=== PATIENT | female | born 1995 | race Caucasian/White ===

== ENCOUNTER → 2019-12-18 14:04 | Outpatient (CLI) | payer BC, SELFPAY ==
[2019-12-18 13:39] VITALS: BMI 30.8
[2019-12-18 15:18] LABS: Absolute Lymphocyte Count 1.85 X10^3/uL (0.83-4.51); Absolute Neutrophil Count 3.8 X10^3/uL (2.0-7.7); Basophil# 0.06 X10^3/uL; Basophil% 0.9 % (0-1); Eosinophil# 0.24 X10^3/uL; Eosinophils% 3.6 % (0-5); Hematocrit 42.6 % (37-47); Lymphocyte # 1.85 X10^3/ul (4.0); Lymphocyte % 27.9 % (19-41); Mean Corp Hgb Conc 32.9 g/dL (32-36); Mean Corpuscular Hgb 29.2 pg (27.0-32.0); Mean Corpuscular Volume 88.9 fL (81-99); Mean Platelet Vol. 9.7 fl (6.2-12.0); Monocyte# 0.62 X10^3/uL; Monocyte% 9.4 % (0-10); NRBC Flagged by Analyzer 0 % (0-5); Neutrophil # 3.82 X10^3/uL (2.7-7.7); Neutrophil % 57.7 % (47-70); Platelet Count 288 K/mm3 (150-450); RBC Distribution Width CV 12.1 % (11.6-14.6); RBC Distribution Width SD 39.6 fl (35.1-43.9); Red Blood Count 4.79 M/mm3 (4.2-5.4); White Blood Count 6.6 K/mm3 (4.4-11.0)
[2019-12-18 16:14] LABS: ALB/GLOB Ratio 0.9 RATIO (0.9-2.4); AST(SGOT) 14 U/L (15-37); Alanine Aminotransfer ALT/SGPT 22 U/L (13-56); Albumin, Serum 3.7 g/dL (3.2-5.0); Alkaline Phosphatase 78 U/L (45-117); Anion Gap 4 (5-15); BUN 14 mg/dL (7-18); BUN/Creat Ratio 17.2 RATIO (10-20); Calcium,Total 8.7 mg/dL (8.5-10.1); Chloride 109 mmol/L (98-107); Creatinine, Serum 0.81 mg/dL (0.55-1.02); EST Glomerular Filtration Rate 92 mL/min (>60); Est Glom Filt Rate - Afr Amer 111 mL/min (>60); Glucose 98 mg/dL (74-106); Potassium 4.4 mmol/L (3.5-5.1); Protein, Total 7.7 g/dL (6.4-8.2); Sodium Level 141 mmol/L (136-145); T4 Free Direct 0.93 ng/dL (0.76-1.46); Thyroid Stim Hormone (TSH) 1.35 uIU/mL (0.358-3.74)
== END ==
PROVIDERS: PCP Internal Medicine; Referring Provider Internal Medicine; Visit Provider Internal Medicine
DX: Z00.00 Encounter for general adult medical examination without abnormal findings (principal); Z13.29 Encounter for screening for other suspected endocrine disorder
CPT/HCPCS: 36415; 80053; 84439; 84443; 85025

== ENCOUNTER 2020-03-10 00:31 | Emergency (ER) | payer BC, SELFPAY ==
[2020-03-07 11:29] VITALS: BMI 30.8
[2020-03-10 00:32] VITALS: BP 156/86; PULSE 127; RESP 17; TEMP 36.7; O2SAT 98; BMI 31.7
[2020-03-10 00:36] VITALS: BP 156/86; PULSE 127; RESP 17; TEMP 36.7; O2SAT 98
[2020-03-10] MEDS: 0.9% Normal Saline 1,000 ML 1000 ML IV (01:43)
[2020-03-10] MEDS: DiphenhydrAMINE 50 MG/ML Syringe 25 MG IV (01:44)
[2020-03-10] MEDS: Metoclopramide 10 MG/2 ML Vial IV (01:45)
[2020-03-10] MEDS: Ketorolac 15 MG/ML Vial IV (01:46)
[2020-03-10 01:53] VITALS: BP 133/83; PULSE 95; RESP 16; TEMP 37; O2SAT 99
[2020-03-10 02:00] VITALS: BP 124/76; PULSE 101; RESP 16; TEMP 37; O2SAT 98
[2020-03-10 02:04] LABS: Absolute Lymphocyte Count 0.89 X10^3/uL (0.83-4.51); Absolute Neutrophil Count 2.7 X10^3/uL (2.0-7.7); Basophil# 0.03 X10^3/uL; Basophil% 0.7 % (0-1); Eosinophil# 0.07 X10^3/uL; Eosinophils% 1.7 % (0-5); Hematocrit 41.4 % (37-47); Hemoglobin 13.8 g/dL (12.0-15.0); Lymphocyte # 0.89 X10^3/ul (4.0); Lymphocyte % 21.1 % (19-41); Mean Corp Hgb Conc 33.3 g/dL (32-36); Mean Corpuscular Hgb 28.9 pg (27.0-32.0); Mean Corpuscular Volume 86.6 fL (81-99); Mean Platelet Vol. 9.5 fl (6.2-12.0); Monocyte# 0.49 X10^3/uL; Monocyte% 11.6 % (0-10); NRBC Flagged by Analyzer 0 % (0-5); Neutrophil # 2.73 X10^3/uL (2.7-7.7); Neutrophil % 64.7 % (47-70); Platelet Count 168 K/mm3 (150-450); RBC Distribution Width CV 12.2 % (11.6-14.6); RBC Distribution Width SD 38.3 fl (35.1-43.9); Red Blood Count 4.78 M/mm3 (4.2-5.4); White Blood Count 4.2 K/mm3 (4.4-11.0)
[2020-03-10 02:17] LABS: Anion Gap 5 (5-15); BUN 11 mg/dL (7-18); Calcium,Total 8.5 mg/dL (8.5-10.1); Chloride 108 mmol/L (98-107); Creatinine, Serum 0.92 mg/dL (0.55-1.02); EST Glomerular Filtration Rate 80 mL/min (>60); Est Glom Filt Rate - Afr Amer 97 mL/min (>60); Estimated Creatinine Clearance 95.12 ml/min; Glucose 100 mg/dL (74-106); Potassium 3.7 mmol/L (3.5-5.1); Sodium Level 137 mmol/L (136-145)
[2020-03-10 02:36] LABS: Internal QC Validated? YES +Cl - CLEAR BKGD; Pregnancy, Serum, hCG Quali. NEGATIVE Negative
--- NOTE | 2020-03-10 02:36 | ED.VISSUMM ---
- ER Visit Summary Date of Service: 03/10/20 Chief Complaint: Headache and fever History of Present Illness: The patient is a [address] Jeffries. She reports that she has a headache that began 3 days ago. Is gradually gotten worse. Is an aching, throbbing pain in her neck and in the frontal region. Stated 10 at worst and 7-10 currently. Is worsened by walking or turning head. She relieved by the dark. She does complain of mild photophobia. She denies any nausea or vomiting. No numbness, tingling, or weakness. No recent injury to her head. Patient reports that she is had a fever to 100.5 degrees. She is also had chills and cold sweats. She denies any other infectious symptoms. No cough or difficulty breathing. No sore throat. No abdominal pain. No nausea, vomiting, or diarrhea. No dysuria or frequency. Her last menstrual period was 32 days ago. Physical Examination: Vitals: 98.1, 156/86, 127, 17, 98% on room air which is not hypoxic. General: Well-nourished and well-developed. Head: Normocephalic atraumatic. Neck: Supple. No JVD. Mild tenderness palpation over the paraspinous musculature bilaterally. She does have a solitary enlarged posterior lymph node on the right. No pharyngeal erythema or tonsillar exudate.. Cardiovascular: Tachycardic regular rhythm. No murmurs. Respiratory: No respiratory distress. Clear to auscultation bilaterally. Abdominal: Soft, nontender, nondistended, normal bowel sounds. No guarding, rebound, or peritoneal signs. Back: Nontender. Extremities: Nontender, no edema. Skin: Normal color, no rash. Neurologic: Alert and oriented ?3. Cranial nerves II through XII are intact. Normal strength and sensation. Psych: Normal affect. Test Results: CBC shows a white count of 4.2 with 12 monocytes. Chem-7 shows a chloride of 108. Kaufman test is negative. test is negative. Urinalysis shows ketones, but no evidence of infection. Emergency Department Course and Treatment: I had a prolonged discussion with the patient about the possibility of meningitis given her headache and fever. She reports that she had meningitis when she was 14 and this does not feel the same. She refused a lumbar puncture before any medications. She was given a liter of normal saline, Toradol, Reglan, and Benadryl IV. She is resting more comfortably. Treatment Plan: Patient will be discharged with symptomatic care. Push fluids. Use Tylenol and/or ibuprofen for headache. Warm compresses to her neck. Follow-up her primary care physician 1 to 2 days if not improving. Return to the emergency department for any worsening symptoms. Disposition: To home in improved and stable condition. Impression: 1 1. Cephalgia. This note was generated with [employer] dictation software. It may contain incorrect words, spelling, and punctuation that were not noted in review of the chart prior to signing ED Disposition - Plan for ED Patient: Instructions: ED CEPHALGIA Tension Headache Referrals: Marlen Jeffries MD [Primary Care Provider] - 1-2 Days if not improving
[2020-03-10 02:40] LABS: Internal QC Validated? YES +Cl - CLEAR BKGD; Monotest Negative (Negative)
[2020-03-10 03:00] VITALS: BP 125/79; PULSE 99; RESP 16; TEMP 37; O2SAT 97
[2020-03-10 03:12] LABS: Bacteria 0 SEEN /hpf (None Seen); Mucous, Urine 0 SEEN /hpf (<or=2+); Red Blood Cells-Urine 0 SEEN /hpf (0-5)
[2020-03-10 03:13] LABS: Color, Urine Yellow (Yellow); Glucose, Dipstick Normal (Normal); Ketone-Dipstick 50 mg/dl (Negative); Leukocyte Esterase-Dipstick 25 /ul (Negative); Nitrite-Dipstick Negative (Negative); Occult Blood-Urine Negative /ul (Negative); Protein-Dipstick 15 mg/dl (Negative); Specific Gravity, Urine 1.015 (1.002-1.030); Urine Bilirubin Dipstick Negative (Negative); Urine Clarity Sl. Cloudy (Clear); Urine Urobilinogen Normal (Normal); Urine pH 6.5 (5.0 - 8.0)
[2020-03-10 03:21] LABS: Amorphous Sediment 1+; Squamous Epithelial Cells - UA 0-5 SEEN /hpf (5-10); White Blood Cells 0-5 SEEN /hpf (0-5)
[2020-03-10 03:55] VITALS: BP 125/79; PULSE 99; RESP 16; O2SAT 97
== END 2020-03-10 04:04 | disposition home or self-care (01) ==
LOC: ED 01:16
PROVIDERS: Emergency Provider Emergency Medicine; PCP Internal Medicine
DX: R51.9 Headache, unspecified (principal); M54.2 Cervicalgia
CPT/HCPCS: 80048; 81001; 84703; 85025; 86308; 96361; 96374; 96375; 99283; J7030; A4216

== ENCOUNTER → 2020-09-12 | Outpatient (CLI) | payer BC, SELFPAY ==
[2020-09-12 14:22] VITALS: BMI 32.5
[2020-09-12 18:04] LABS: Amphetamine Urine VISTA NEGATIVE (<1000 ng/mL); Barbiturate Urine VISTA NEGATIVE (< 200 ng/mL); Benzodiazepine Urine VISTA NEGATIVE (< 200 ng/mL); Cocaine Urine VISTA NEGATIVE (< 300 ng/mL); Ecstacy Urine VISTA NEGATIVE (< 500 ng/mL); Methadone Urine VISTA NEGATIVE (< 300 ng/mL); PCP Urine VISTA NEGATIVE (< 25 ng/mL); THC Urine VISTA NEGATIVE (< 50 ng/mL); Vista UDS pH Range 6
[2020-09-16 06:06] LABS: Chlamydia By Nucleic Acid AMP Negative (Negative)
[2020-09-16 09:29] LABS: Gonococcus By Nucleic Acid AMP Negative (Negative)
== END | disposition home or self-care (01) ==
PROVIDERS: PCP Internal Medicine; Referring Provider Obstetrics & Gynecology; Visit Provider Obstetrics & Gynecology
DX: Z34.90 Encounter for supervision of normal pregnancy, unspecified, unspecified trimester (principal); Z11.3 Encounter for screening for infections with a predominantly sexual mode of transmission
CPT/HCPCS: 80307; 87086; 87491; 87591

== ENCOUNTER → 2020-10-10 13:27 | Outpatient (CLI) | payer BC, SELFPAY ==
[2020-10-10 11:36] VITALS: BMI 32.5
[2020-10-10 13:56] LABS: Absolute Lymphocyte Count 1.85 X10^3/uL (0.83-4.51); Absolute Neutrophil Count 5.6 X10^3/uL (2.0-7.7); Basophil# 0.06 X10^3/uL; Basophil% 0.7 % (0-1); Eosinophil# 0.11 X10^3/uL; Eosinophils% 1.3 % (0-5); Hematocrit 40.7 % (37-47); Lymphocyte # 1.85 X10^3/ul (0.83-4.51); Lymphocyte % 22.5 % (19-41); Mean Corp Hgb Conc 34.4 g/dL (32-36); Mean Corpuscular Hgb 29.5 pg (27.0-32.0); Mean Corpuscular Volume 85.7 fL (81-99); Mean Platelet Vol. 9.6 fl (6.2-12.0); Monocyte# 0.54 X10^3/uL; Monocyte% 6.6 % (0-10); NRBC Flagged by Analyzer 0 % (0-5); Neutrophil # 5.63 X10^3/uL (2.7-7.7); Neutrophil % 68.5 % (47-70); Platelet Count 250 K/mm3 (150-450); RBC Distribution Width CV 12.5 % (11.6-14.6); RBC Distribution Width SD 39.1 fl (35.1-43.9); Red Blood Count 4.75 M/mm3 (4.2-5.4); White Blood Count 8.2 K/mm3 (4.4-11.0)
[2020-10-10 14:34] LABS: Glucose Challenge Gest 1H 50g 123 mg/dL (70-140)
[2020-10-10 14:54] LABS: NATERA MAILED SPECIMEN
[2020-10-10 15:17] LABS: HIV - WCH Non-Reactive (Nonreactive); Hepatitis B Surface Antigen Non-Reactive (Nonreactive); Hepatitis C Antibody Non-Reactive (Nonreactive); Rubella IgG Reactive (Nonreactive); Syphilis Antibodies Non-reactive
== END ==
PROVIDERS: PCP Internal Medicine; Referring Provider Obstetrics & Gynecology; Visit Provider Obstetrics & Gynecology
DX: Z34.90 Encounter for supervision of normal pregnancy, unspecified, unspecified trimester (principal)
CPT/HCPCS: 36415; 82950; 85025; 86703; 86762; 86780; 86803; 86850; 86900; 86901; 87340

== ENCOUNTER 2020-12-25 05:49 | Emergency (ER) | payer BC, SELFPAY ==
[2020-12-04 14:49] VITALS: BMI 32.5
[2020-12-25 05:49] VITALS: BP 117/78; PULSE 102; RESP 18; TEMP 36.2; O2SAT 97; BMI 32.0
--- NOTE | 2020-12-25 05:54 | ED.RN ---
NO OLD EKGS IN MUSE
--- NOTE | 2020-12-25 06:03 | EKG12_ITS ---
Test Reason : CP Blood Pressure : / mmHG Vent. Rate : 104 BPM Atrial Rate : 104 BPM P-R Int : 142 ms QRS Dur : 100 ms QT Int : 364 ms P-R-T Axes : 030 043 017 degrees QTc Int : 478 ms Sinus tachycardia Incomplete right bundle branch block Borderline ECG Confirmed by GABO LOPEZ, JABARI ([id number]), supervising editor news reel WM DOBSON ([id number]) on 01/03/2021 9:21:37 AM Referred By: DRAIEL Confirmed By:JABARI AYON MD
--- NOTE | 2020-12-25 06:15 | EX.ED.DYSGE1 ---
HPI History of Present Illness Chief Complaint: Chest Pain Informant: patient Narrative Narrative: Patient is a 25-year-old previously healthy female currently at 23 weeks who presents to the emergency department for an episode of epigastric abdominal pain. She states that this woke her up out of the sleep. She took some Tums and was still having pain and she started to feel short of breath so she came into the emergency department. On arrival to the ED her symptoms have completely resolved. She believes that she just had an episode of GERD and now wishes she did not come into the emergency department. She is denying any chest pain or shortness of breath currently. No abdominal pain. She denies any vaginal bleeding or discharge. No urinary symptoms. No nausea/vomiting. Her has not had any complications at this point. This is her first . She denies any previous surgeries. She denies smoking, drinking or drug use. No leg swelling or calf pain. [facility] Medical History (Updated 12/25/20 @ 06:[address] Moses Dinh DO) Headache, migraine history of bone fractures History of viral meningitis Hives Seasonal allergies Home Medications multivitamin no.47-iron fum 27 mg-folate no.1 1 mg-dha 300 mg capsule 1 cap PO DAILY 09/04/20 [History Last Taken Unknown] Allergy/AdvReac Type Severity Reaction Status Date / Time Penicillins Allergy Mild hives Verified 12/25/20 05:55 Family History Father Thyroid cancer Myocardial infarction, Onset Age: 50 High cholesterol Grandfather Myocardial infarction, Onset Age: 50 Mother Thyroid disorder mega Social History household members: significant other housing: house current occupational status: employed Smoking Status: Never smoker alcohol intake: current alcohol intake frequency: a few times a month Alcohol type: beer, wine and hard liquor substance use type: does not use caffeine: Yes what type of physical activity do you participate in: walking, bicycling and additional details: horse riding seatbelt use: always do you feel safe at home: Yes additional social history: -Jacques ROS ROS ED Constitutional Constitutional ED: Denies chills or fever(s) Eyes Eyes: Denies change in vision ENT ENT ED: Denies epistaxis or rhinorrhea Cardiovascular Cardiovascular: Denies chest pain or palpitations Respiratory/Chest Respiratory/Chest: Denies cough, dyspnea or dyspnea on exertion Gastrointestinal Gastrointestinal: Reports abdominal pain; Denies diarrhea, nausea or vomiting Genitourinary Genitourinary ED: Denies dysuria, hematuria or urinary frequency Musculoskeletal Musculoskeletal: Denies back pain or neck pain Integumentary Denies rash Neurologic Neurologic: Denies dizziness, headache(s) or weakness EXAM Physical Exam Const Vital Signs: 12/25/20 05:49 12/25/20 05:56 Temperature 97.2 F L Temperature Source Temporal Pulse Rate 102 H Respiratory Rate 18 Respiratory Effort Normal Non-Labored Respiratory Pattern Normal Blood Pressure 117/78 Blood Pressure Mean 91 Pulse Ox 97 Oxygen Delivery Method Room Air Positive well nourished and well developed General Appearance ED: well developed and NAD HEENT Reports normocephalic and head/scalp atraumatic Eyes PERRL and EOMs intact bilaterally Neck supple Resp normal respiratory effort and clear to auscultation bilaterally Auscultation: Negative for rales, rhonchi or wheezes Cardio regular rate, regular rhythm and no murmurs GI normal to inspection, nondistended, normoactive bowel sounds and non-tender Palpation: soft; Negative for guarding or rebound tenderness present Back/Spine no CVA tenderness Extremity normal to inspection General Extremety ED: Negative for edema or tenderness General Extremity: Negative for edema Neuro no sensory deficits noted Sensorium / Orientation: alert Motor Exam: strength 5/5 throughout Psych mental status grossly normal Skin no rashes or lesions noted MDM MDM MDM Narrative Medical decision making narrative: Patient presents to the ED for an episode of epigastric abdominal pain. This has since resolved. On arrival to the ED she is borderline tachycardic but otherwise normal vital signs. Satting well on room air. EKG was performed which did not reveal any signs of acute ischemia or arrhythmia. I did discuss doing lab work with the patient but she is completely asymptomatic and does not want this done. She states that she has any repeat symptoms and she will come back for further evaluation. She was agreeable to staying in the ED to be observed for short period of time to make sure symptoms did not return. Patient monitored in the ED and she is still feeling well. She does want to be discharged at this time. She can return anytime if she develops any repeat symptoms for reassessment. She understands and is agreeable to plan. Discharged home in stable condition. She otherwise is to follow-up with her PCP. EKG Initial EKG: Attestation: I personally reviewed and interpreted this EKG as follows: (Rate of 104 bpm sinus tachycardia. Normal intervals. Normal axis. No significant ST elevations or depressions. No T wave abnormalities.) Discharge Plan Triage Chief Complaint: Chest Pain ED Provider: Moses Dinh Dx/Rx/DC Orders Clinical Impression: Abdominal pain affecting Instructions: Abdominal Pain Prescriptions: No Action PNV-DHA 27 mg iron-1 mg -300 mg capsule 1 cap PO DAILY RF: 0 Primary Care Provider: Marlen Jeffries Referrals: Marlen Jeffries MD [Primary Care Provider] - As Needed Disposition Disposition: Home, Self Care
[2020-12-25 06:33] VITALS: BP 111/68; PULSE 90; RESP 16; O2SAT 96
== END 2020-12-25 06:34 | disposition home or self-care (01) ==
PROVIDERS: Emergency Provider Emergency Medicine; PCP Internal Medicine
DX: O99.891 Other specified diseases and conditions complicating pregnancy (principal); R07.9 Chest pain, unspecified; R10.13 Epigastric pain; Z86.61 Personal history of infections of the central nervous system; Z3A.23 23 weeks gestation of pregnancy
CPT/HCPCS: 93005; 99282

== ENCOUNTER → 2021-01-27 14:46 | Outpatient (CLI) | payer BC, SELFPAY ==
[2021-01-27 15:27] LABS: Absolute Neutrophil Count 5.9 X10^3/uL (2.0-7.7); Basophil# 0.06 X10^3/uL; Basophil% 0.7 % (0-1); Eosinophils% 2.3 % (0-5); Hematocrit 39.2 % (37-47); Hemoglobin 13.3 g/dL (12.0-15.0); Lymphocyte % 19.8 % (19-41); Mean Corp Hgb Conc 33.9 g/dL (32-36); Mean Corpuscular Hgb 30.4 pg (27.0-32.0); Mean Corpuscular Volume 89.7 fL (81-99); Mean Platelet Vol. 9.3 fl (6.2-12.0); Monocyte# 0.72 X10^3/uL; Monocyte% 8.4 % (0-10); NRBC Flagged by Analyzer 0 % (0-5); Neutrophil # 5.86 X10^3/uL (2.7-7.7); Neutrophil % 68.1 % (47-70); Platelet Count 241 K/mm3 (150-450); RBC Distribution Width CV 12.3 % (11.6-14.6); RBC Distribution Width SD 40.2 fl (35.1-43.9); Red Blood Count 4.37 M/mm3 (4.2-5.4); White Blood Count 8.6 K/mm3 (4.4-11.0)
[2021-01-27 15:37] LABS: Glucose Challenge Gest 1H 50g 93 mg/dL (70-140)
== END ==
PROVIDERS: Obstetrics & Gynecology; PCP Internal Medicine; Referring Provider Nurse Practitioner Women's Health; Visit Provider Nurse Practitioner Women's Health
DX: Z34.92 Encounter for supervision of normal pregnancy, unspecified, second trimester (principal); Z3A.24 24 weeks gestation of pregnancy
CPT/HCPCS: 36415; 82950; 85025

== ENCOUNTER → 2021-03-25 | Outpatient (CLI) | payer BC, SELFPAY | END | disposition home or self-care (01) | LOC: LABSPEC 12:37 | PROVIDERS: PCP Internal Medicine; Referring Provider Nurse Practitioner Women's Health; Visit Provider Nurse Practitioner Women's Health | DX: Z34.93 Encounter for supervision of normal pregnancy, unspecified, third trimester (principal); Z3A.34 34 weeks gestation of pregnancy | CPT/HCPCS: 87081 ==

== ENCOUNTER 2021-03-27 18:00 | Outpatient (CLI) | payer BC, SELFPAY ==
[2021-03-27] VITALS (7 sets, daily range): BP systolic 123–137; BP diastolic 69–90; PULSE 80–110; TEMP 37.7; O2SAT 99; BMI 30.7
[2021-03-27] MEDS: Mag Hydrox/Al Hydrox/Simeth 30 ML UDC PO (18:54)
[2021-03-27 18:55] LABS: Hematocrit 35.2 % (37-47); Mean Corp Hgb Conc 34.1 g/dL (32-36); Mean Corpuscular Hgb 29.3 pg (27.0-32.0); Mean Corpuscular Volume 86.1 fL (81-99); Mean Platelet Vol. 9.6 fl (6.2-12.0); Platelet Count 197 K/mm3 (150-450); RBC Distribution Width CV 12.2 % (11.6-14.6); RBC Distribution Width SD 38.4 fl (35.1-43.9); Red Blood Count 4.09 M/mm3 (4.2-5.4); White Blood Count 9.1 K/mm3 (4.4-11.0)
[2021-03-27 19:13] LABS: ALB/GLOB Ratio 0.5 RATIO (0.9-2.4); AST(SGOT) 57 U/L (15-37); Alanine Aminotransfer ALT/SGPT 43 U/L (13-56); Albumin, Serum 2.3 g/dL (3.2-5.0); Alkaline Phosphatase 223 U/L (45-117); Anion Gap 9 (5-15); BUN 5 mg/dL (7-18); BUN/Creat Ratio 7.9 RATIO (10-20); Calcium,Total 8.6 mg/dL (8.5-10.1); Chloride 106 mmol/L (98-107); Creatinine, Serum 0.63 mg/dL (0.55-1.02); EST Glomerular Filtration Rate 122 mL/min (>60); Est Glom Filt Rate - Afr Amer 148 mL/min (>60); Globulin 4.3 g/dL (2.2-4.2); Glucose 102 mg/dL (74-106); Lipase 140 U/L (73-393); Protein, Total 6.6 g/dL (6.4-8.2); Sodium Level 139 mmol/L (136-145)
--- NOTE | 2021-03-27 19:56 | US_ITS ---
EXAM: US ABDOMEN LIMITED, RIGHT UPPER QUADRANT : 1995 CLINICAL INDICATION: upper abd pain TECHNIQUE: Real-time ultrasound of the right upper quadrant with image documentation. This report was created using [employer] report BIXI technology. COMPARISON: None. FINDINGS: LIVER: Unremarkable. There is normal echotexture. No focal hepatic lesion. No intrahepatic biliary ductal dilation. GALLBLADDER: A few tiny gallstones are noted. No gallbladder wall thickening is demonstrated. No pericholecystic fluid. Negative sonographic Gonzalez's sign. COMMON BILE DUCT: 4 mm The proximal common bile duct is within normal limits for the patient's age. PANCREAS: Unremarkable as visualized. No focal abnormality is demonstrated in the pancreas. No pancreatic ductal dilatation. RIGHT KIDNEY: Unremarkable. There is no hydronephrosis. No shadowing calculus. No focal lesion or perinephric collection is demonstrated. US/Abdomen Limited IMPRESSION: A few tiny gallstones are noted. No evidence of acute cholecystitis. at 2204 Reported and signed by: Guerrero Callaway MD Electronically Signed: Guerrero Callaway MD at 22:03 EDT Tel , Service support ,
--- NOTE | 2021-03-27 20:00 | OB.TRI.HP_ITS ---
HPI - General HPI Narrative SOPHIA GOLDMAN, is a 26 F who presents with increasing onset of upper abdominal pain radiating into her right back over the last few days. Patient had an episode 3 months ago of this and had minimal evaluation in the emergency room which did not occlude any blood work or imaging. Patient has some nausea but no emesis and pain is 10 out of 10 requesting pain medicine. Upon evaluation AST and total bilirubin are elevated but other labs are within normal limits. She denies any dysuria. Maternal Data Information CHERYL Calculator Estimated Delivery Date Method Current WG Current Estimate 04/21/21 LMP (Certain) 36w 3d Other Estimates 04/21/21 Ultrasound #1 36w 3d PFSH PFSH Medical History Headache, migraine history of bone fractures History of tetanus, diphtheria, and acellular pertussis booster vaccination (Tdap) History of viral meningitis Hives Seasonal allergies Home Medications multivitamin no.47-iron fum 27 mg-folate no.1 1 mg-dha 300 mg capsule 1 cap PO DAILY 09/04/20 [History Last Taken 03/26/21 23:00] Allergy/AdvReac Type Severity Reaction Status Date / Time Penicillins Allergy Mild hives Verified 03/27/21 18:26 Family History Father Thyroid cancer Myocardial infarction, Onset Age: 50 High cholesterol Grandfather Myocardial infarction, Onset Age: 50 Mother Thyroid disorder mega Social History household members: significant other housing: house current occupational status: employed Smoking Status: Never smoker alcohol intake: current alcohol intake frequency: a few times a month Alcohol t ype: beer, wine and hard liquor substance use type: does not use caffeine: Yes what type of physical activity do you participate in: walking, bicycling and additional details: horse riding seatbelt use: always do you feel safe at home: Yes additional social history: -Jacques History 1 Elective abortions Hx Para Spontaneous abortions Hx # Term Pregnancies Ectopic pregnancies Hx # Pregnancies Multiple births # of living children Visit Details Expected Delivery Route/Plan Labor Preferences- CB/BF classes: online labor support person: [place] labor intervention preferences: pain management options preferred: epidural if needed cut cord/dad catch: yes : yes PP control planned: condoms discussed possible routes of delivery and associated risks: [] special requests: [] Plans covid status: nonimmune counseled regarding risk of covid in vs vaccination and declined vaccination flu vaccine: declines tdap vaccine: given rhogam: na LARC form signed: yes Problem list reviewed and updated with the most current plan of care details and appropriate orders placed. Relevant counseling for the gestational age provided. Continue routine care and follow up unless otherwise noted in visit notes/problem list details OB Flowsheet Initial Weight: 215 lb Date -?-?-?-?-?-?-?-?-?-?-?-?- EGA Weight BP Urine Prot -?-?-?-?-?-?-?-?-?-?-?-?- Glucose FHR FuHt Pres Dilation -?-?-?-?-?-?-?-?-?-?-?-?- Effaced St Visit Note 09/12/20 -?-?-?-?-?-?-?-?-?-?-?-?- 8w 3d 214 lb (-16 oz) -?-?-?-?-?-?-?-?-?-?-?-?- 163 -?-?-?-?-?-?-?-?-?-?-?-?- GP - CRL 16mm co nsistent with LMP. 10/10/20 -?-?-?-?-?-?-?-?-?-?-?-?- 12w 3d 204 lb (-11 lb) Negative -?-?-?-?-?-?-?-?-?-?-?-?- Negative 160 -?-?-?-?-?-?-?-?-?-?-?-?- SM- no vb crampi ng 11/05/20 -?-?-?-?-?-?-?-?-?-?-?-?- 16w 1d 205 lb 6 oz (-9 lb 10 oz) 116/60 Negative -?-?-?-?-?-?-?-?-?-?-?-?- Negative 155 -?-?-?-?-?-?-?-?-?-?-?-?- MH-no VB, LOF. Anatomy US ordered. NIPT LR. Carrier and AFP declined. 12/04/20 -?-?-?-?-?-?-?-?-?-?-?-?- 20w 2d 206 lb (-9 lb) 132/70 Negative -?-?-?-?-?-?-?-?-?-?-?-?- Negative 160 -?-?-?-?-?-?-?-?-?-?-?-?- GP - no LOF, VB, DFM, ctx. Decided on name - Colby Rubio. Anatomy scan next week. 12/30/20 -?-?-?-?-?-?-?-?-?-?-?-?- 24w 0d 206 lb (-9 lb) 132/82 Negative -?-?-?-?-?-?-?-?-?-?-?-?- Negative 155 -?-?-?-?-?-?-?-?-?-?-?-?- GP - no LOF, VB, DFM, ctx. Anatomy results reviewed. GP - no LOF, VB, DFM, ctx. H ave not received anatomy results - called to obtain. 01/27/21 -?-?-?-?-?-?-?-?-?-?-?-?- 28w 0d 204 lb 4 oz (-10 lb 12 oz) 128/70 Trace -?-?-?-?-?-?-?-?-?-?-?-?- Negative 149 28 -?-?-?-?-?-?-?-?-?-?-?-?- MH-No VB, LOF. G ood FM. 28 wk labs, tdap and larc. MH-No VB, LOF. Good FM. 28 wk labs, tdap and larc. Seen in ED for upper abdominal/chest pain. Has happened 4 times. thinks spasm of diaphragm and will see PCP. 02/12/21 -?-?-?-?-?-?-?-?-?-?-?-?- 30w 2d 205 lb 4 oz (-9 lb 12 oz) 120/80 Negative -?-?-?-?-?-?-?-?-?-?-?-?- Negative 150 30 -?-?-?-?-?-?-?-?-?-?-?-?- GP - no ctx, LOF , VB, DFM. Discussed poss esophageal spasms - encouraged pepcid BID scheduled. 02/26/21 -?-?-?-?-?-?-?-?-?-?-?-?- 32w 2d 204 lb 4 oz (-10 lb 12 oz) 120/70 -?-?-?-?-?-?-?-?-?-?-?-?- 145 32 -?-?-?-?-?-?-?-?-?-?-?-?- SM- no vb lof go od fm no reuglar ctx 03/12/21 -?-?-?-?-?-?-?-?-?-?-?-?- 34w 2d 205 lb 2 oz (-9 lb 14 oz) 106/78 Negative -?-?-?-?-?-?-?-?-?-?-?-?- Negative 155 34 Cephalic -?-?-?-?-?-?-?-?-?-?-?-?- GP - no LOF, VB, DFM, ctx. Denies complaints. Discussed COVID precautions in . 03/25/21 -?-?-?-?-?-?-?-?-?-?-?-?- 36w 1d 209 lb 4 oz (-5 lb 12 oz) 118/72 Negative -?-?-?-?-?-?-?-?-?-?-?-?- Negative 151 -?-?-?-?-?-?-?-?-?-?-?-?- MH-No VB, LOF. G ood FM GBS. 03/27/21 -?-?-?-?-?-?-?-?-?-?-?-?- 36w 3d 202 lb 6.15 oz (-12 lb 9.85 oz) 128/84 132/90 -?-?-?-?-?-?-?-?-?-?-?-?- -?-?-?-?-?-?-?-?-?-?-?-?- ROS Constitutional Constitutional: Reports systems reviewed and no addt'l complaints, except as documented Gastrointestinal Gastrointestinal: Reports as per HPI Physical Exam Const alert, oriented x3 and no apparent distress HEENT Head and Scalp: normocephalic and atraumatic Neck full ROM and no lymphadenopathy Chest inspection of chest normal Resp normal respiratory effort GI Palpation: tender; Negative for rigid or rebound tenderness present Percussion: other Other Details: Gravid NST FHR Rate Baby A Baseline: 140 Variability:: Moderate Accelerations:: 15 x 15 Decelerations:: None NST Reactive:: Yes FHR Category:: Category I Uterine Activity:: no regular Assessment & Plan (1) : QUALIFIERS: Weeks of gestation: 34 weeks Qualified Code(s): Z3A.34 - 34 weeks gestation of COMMENT: declines carrier, and AFP, NIPT low risk. Anatomy US normal (2) Supervision of normal first : QUALIFIERS: Trimester: first trimester Qualified Code(s): Z34.01 - Encounter for supervision of normal first , first trimester COMMENT: PRR CHERYL: 04/21/21, boy - Colby, Spouse: Jacques (3) Abdominal pain during in third trimester: COMMENT: Elevated AST and T bili, right upper quadrant ultrasound ordered and possible CT abdomen pelvis. No leukocytosis or fever. IV fluids and IV pain medication given. STO Charges/Coding Multi Select Codes Visit Charges Office Visit/Consults: 68129 OV L3 Est Urinary/Genital Urinary/Genital CPT Codes: 49235-08 non-stress test Interp
[2021-03-27] MEDS: Lactated Ringers 1,000 ML 999 ML IV (20:30)
[2021-03-27 22:10] LABS: Mucous, Urine 0 SEEN /hpf (<or=2+); Red Blood Cells-Urine 0 SEEN /hpf (0-5); Squamous Epithelial Cells - UA 0 SEEN /hpf (5-10)
[2021-03-27 22:12] LABS: Color, Urine Yellow (Yellow); Glucose, Dipstick Normal (Normal); Leukocyte Esterase-Dipstick 500 /ul (Negative); Nitrite-Dipstick Negative (Negative); Occult Blood-Urine Negative /ul (Negative); Protein-Dipstick Negative (Negative); Specific Gravity, Urine 1.015 (1.002-1.030); Urine Bilirubin Dipstick Negative (Negative); Urine Clarity Cloudy (Clear); Urine Urobilinogen 1 mg/dl (Normal)
[2021-03-27 22:21] LABS: Ketone-Dipstick 150 mg/dl (Negative)
[2021-03-27 22:22] LABS: Amorphous Sediment 1+; Bacteria 1+ /hpf (None Seen); White Blood Cells 0-5 SEEN /hpf (0-5)
--- NOTE | 2021-03-27 22:24 | NURSING ---
Lab called with critical value of 150 ketones. Lissy MENDOZA informed.
[2021-03-27 22:37] LABS: Protein, Urine (Random) 16.5 mg/dL (<11.9); Protein:Creat Ratio 175 mg/g CRE (0-200)
--- NOTE | 2021-03-27 22:38 | US_ITS ---
History: well being cholelithiasis EXAMINATION: US Biophysical Profile W/O Nonst TECHNIQUE: Transabdominal pelvic ultrasound was performed. COMPARISON: OB ultrasound from same date FINDINGS: INTRAUTERINE GESTATION(s): Single. HEART MOTION is 152 bpm. BIOPHYSICAL PROFILE (BPP): 01/05. -- breathin/2. -- movement: 2. -- tone: 2. --HOMER: 22. PRESENTATION: cephalic. CERVIX: The cervix is not visualized. US/Biophysical Prof W/O Non Stres IMPRESSION: Single live intrauterine . No acute abnormality. Biophysical profile: 01/05 at 0112 Reported and signed by: Guerrero Callaway MD Electronically Signed: Guerrero Callaway MD at 1:12 EDT Tel , Service support ,
--- NOTE | 2021-03-27 22:47 | US_ITS ---
History: Growth ultrasound Comparison: None Technique: Multiple transabdominal sonographic images of the pelvis. Findings: Multiple sonographic images demonstrate a single live intrauterine with heart rate of 155beats per minute. Cephalicpresentation. The amount of amniotic fluid is within normal limits with an HOMER of 11.6 cm. The cervix is not well-visualized on the provided images. The placenta is anterior/posteriorwith no previa or other complication. measurements are as follows: BPD:8.8 cm, 35 weeks 5 days HC: 33.3 cm, 38 weeks 0 days AC: 33.9 cm, 37 weeks 5 days FL: 7.1 cm, 36 weeks 4 days Gestational age by US: 37 weeks 2 days, CHERYL 04/15/21 Gestational age by LMP: 36 weeks 3 days, CHERYL 04/21/21 Estimated weight is 3156 g, 74th percentile. US/OB Limited With Biometrics IMPRESSION: Single live intrauterine measuring 37 weeks 2 days, with no sonographic evidence of acute complication. at 0111 Reported and signed by: Guerrero Callaway MD Electronically Signed: Guerrero Callaway MD at 1:11 EDT Tel , Service support ,
[2021-03-27] MEDS: Betamethasone/Betamethasone 30 MG/5 ML Vial 12 MG IM (23:56)
[2021-03-27] MEDS: Ursodiol 250 MG Tablet 500 MG PO (23:57)
[2021-03-28 01:22] LABS: ALB/GLOB Ratio 0.6 RATIO (0.9-2.4); AST(SGOT) 79 U/L (15-37); Alanine Aminotransfer ALT/SGPT 54 U/L (13-56); Albumin, Serum 2.3 g/dL (3.2-5.0); Alkaline Phosphatase 237 U/L (45-117); Anion Gap 10 (5-15); BUN 4 mg/dL (7-18); BUN/Creat Ratio 7.3 RATIO (10-20); Calcium,Total 8.7 mg/dL (8.5-10.1); Chloride 107 mmol/L (98-107); Creatinine, Serum 0.55 mg/dL (0.55-1.02); EST Glomerular Filtration Rate 144 mL/min (>60); Est Glom Filt Rate - Afr Amer 174 mL/min (>60); Estimated Creatinine Clearance 157.73 ml/min; Globulin 4.1 g/dL (2.2-4.2); Glucose 99 mg/dL (74-106); Potassium 3.7 mmol/L (3.5-5.1); Protein, Total 6.4 g/dL (6.4-8.2); Sodium Level 139 mmol/L (136-145)
[2021-03-29 06:08] LABS: HEPATITIS B SURFACE AG Negative (Negative); Hepatitis A IgM Antibody Negative (Negative); Hepatitis B Core AB IgM Negative (Negative)
[2021-03-29 07:39] LABS: Hep C Antibodies <0.1 s/co ratio (0.0-0.9)
== END 2021-03-28 01:00 | disposition home or self-care (01) ==
LOC: WPOUT 18:05 → WP 18:13
PROVIDERS: PCP Internal Medicine; Visit Provider Obstetrics & Gynecology
DX: O26.893 Other specified pregnancy related conditions, third trimester (principal); R10.10 Upper abdominal pain, unspecified; Z3A.34 34 weeks gestation of pregnancy
CPT/HCPCS: 96360; 36415; 59025; 59050; 76705; 76816; 76819; 80053; 80074; 81001; 82570; 83690; 84156; 85027; 87086; 87088; 96372; 99218; J7120; G0378; J0702

== ENCOUNTER 2021-03-28 21:12 | Outpatient (CLI) | payer BC, SELFPAY ==
[2021-03-28 21:27] VITALS: BP 128/84; PULSE 111
[2021-03-28 21:49] LABS: Absolute Lymphocyte Count 2.17 X10^3/uL (0.83-4.51); Basophil# 0.05 X10^3/uL; Basophil% 0.4 % (0-1); Eosinophil# 0.05 X10^3/uL; Eosinophils% 0.4 % (0-5); Hematocrit 34.9 % (37-47); Hemoglobin 11.8 g/dL (12.0-15.0); Lymphocyte # 2.17 X10^3/ul (0.83-4.51); Lymphocyte % 19.1 % (19-41); Mean Corp Hgb Conc 33.8 g/dL (32-36); Mean Corpuscular Hgb 29.4 pg (27.0-32.0); Mean Corpuscular Volume 86.8 fL (81-99); Mean Platelet Vol. 9.9 fl (6.2-12.0); Monocyte# 0.92 X10^3/uL; Monocyte% 8.1 % (0-10); NRBC Flagged by Analyzer 0 % (0-5); Neutrophil # 7.99 X10^3/uL (2.7-7.7); Neutrophil % 70.3 % (47-70); Platelet Count 231 K/mm3 (150-450); RBC Distribution Width CV 12.1 % (11.6-14.6); RBC Distribution Width SD 38.6 fl (35.1-43.9); Red Blood Count 4.02 M/mm3 (4.2-5.4); White Blood Count 11.4 K/mm3 (4.4-11.0)
[2021-03-28] MEDS: Betamethasone/Betamethasone 30 MG/5 ML Vial 12 MG IM (22:01)
[2021-03-28 22:04] LABS: ALB/GLOB Ratio 0.6 RATIO (0.9-2.4); AST(SGOT) 43 U/L (15-37); Alanine Aminotransfer ALT/SGPT 47 U/L (13-56); Albumin, Serum 2.6 g/dL (3.2-5.0); Alkaline Phosphatase 217 U/L (45-117); Anion Gap 10 (5-15); BUN 5 mg/dL (7-18); BUN/Creat Ratio 7.8 RATIO (10-20); Bilirubin, Direct 0.19 mg/dL (0.00-0.30); Calcium,Total 8.9 mg/dL (8.5-10.1); Chloride 106 mmol/L (98-107); Creatinine, Serum 0.64 mg/dL (0.55-1.02); EST Glomerular Filtration Rate 120 mL/min (>60); Est Glom Filt Rate - Afr Amer 145 mL/min (>60); Glucose 122 mg/dL (74-106); Potassium 3.6 mmol/L (3.5-5.1); Protein, Total 6.6 g/dL (6.4-8.2); Sodium Level 137 mmol/L (136-145)
--- NOTE | 2021-04-02 05:57 | OB.TRI.PN_ITS ---
Progress Notes Date of Service: 03/28/21 Progress Note: Patient presents for triage evaluation secondary to cholestasis FHT: 130 Moderate variability reactive no decelerations category I tracing [place]: no regular Contractions Assessment and plan: cholestasis Reactive NST, reassuring maternal and status patient discharged to home to follow-up for IOL wednesday. See problem list details for additional plan information. Laboratory Studies: Laboratory Tests 03/28/21 03/28/21 Range/Units 21:30 21:30 WBC 11.4 H (4.4-11.0) K/mm3 RBC 4.02 L (4.2-5.4) M/mm3 Hgb 11.8 L (12.0-15.0) g/dL Hct 34.9 L (37-47) % MCV 86.8 (81-99) fL MCH 29.4 (27.0-32.0) pg MCHC 33.8 (32-36) g/dL RDW Std Deviation 38.6 (35.1-43.9) fl RDW Coeff of Behzad 12.1 (11.6-14.6) % Plt Count 231 (150-450) K/mm3 MPV 9.9 (6.2-12.0) fl Immature Gran % (Auto) 1.700 H (0.0-0.9) % Neut % (Auto) 70.3 H (47-70) % Lymph % (Auto) 19.1 (19-41) % Mcdonald % (Auto) 8.1 (0-10) % Eos % (Auto) 0.4 (0-5) % Baso % (Auto) 0.4 (0-1) % Absolute Neuts (auto) 8.0 H (2.0-7.7) X10^3/uL Absolute Lymphs (auto) 2.17 (0.83-4.51) X10^3/uL Nucleated RBC % 0 (0-5) % Sodium 137 (136-145) mmol/L Potassium 3.6 (3.5-5.1) mmol/L Chloride 106 (98-107) mmol/L Carbon Dioxide 21.0 (21.0-32.0) mmol/L Anion Gap 10 (5-15) BUN 5 L (7-18) mg/dL Creatinine 0.64 (0.55-1.02) mg/dL Est GFR (MDRD) Af Amer 145 (>60) mL/min Est GFR (MDRD) Non-Af 120 (>60) mL/min BUN/Creatinine Ratio 7.8 L (10-20) RATIO Glucose 122 H (74-106) mg/dL Calcium 8.9 (8.5-10.1) mg/dL Total Bilirubin 0.70 (0.20-1.00) mg/dL Direct Bilirubin 0.19 (0.00-0.30) mg/dL AST 43 H (15-37) U/L ALT 47 (13-56) U/L Alkaline Phosphatase 217 H (45-117) U/L Total Protein 6.6 (6.4-8.2) g/dL Albumin 2.6 L (3.2-5.0) g/dL Globulin 4.0 (2.2-4.2) g/dL Albumin/Globulin Ratio 0.6 L (0.9-2.4) RATIO Charges/Coding Procedures Urinary/Genital 52xxx-59xxx: [id number] non-stress test Interp
== END 2021-03-28 22:10 | disposition home or self-care (01) ==
LOC: WPOUT 21:18 → WP 21:19
PROVIDERS: PCP Internal Medicine; Visit Provider Obstetrics & Gynecology
DX: O26.619 Liver and biliary tract disorders in pregnancy, unspecified trimester (principal); K83.1 Obstruction of bile duct; Z3A.00 Weeks of gestation of pregnancy not specified
CPT/HCPCS: 36415; 59025; 80053; 82248; 85025; 96372; J0702

== ENCOUNTER 2021-03-30 18:55 | Inpatient (IN) | payer BC, SELFPAY ==
[2021-03-30 19:11] VITALS: BMI 31.4
[2021-03-30 19:26] VITALS: PULSE 96; O2SAT 99
[2021-03-30 19:27] VITALS: BP 117/73; PULSE 100
[2021-03-30] MEDS: Lactated Ringers 1,000 ML 50 ML IV (19:45)
[2021-03-30 20:09] LABS: Absolute Lymphocyte Count 2.29 X10^3/uL (0.83-4.51); Absolute Neutrophil Count 6.8 X10^3/uL (2.0-7.7); Basophil# 0.07 X10^3/uL; Basophil% 0.7 % (0-1); Eosinophil# 0.12 X10^3/uL; Eosinophils% 1.1 % (0-5); Hematocrit 33.8 % (37-47); Hemoglobin 11.6 g/dL (12.0-15.0); Lymphocyte # 2.29 X10^3/ul (0.83-4.51); Lymphocyte % 21.4 % (19-41); Mean Corp Hgb Conc 34.3 g/dL (32-36); Mean Corpuscular Hgb 29.8 pg (27.0-32.0); Mean Corpuscular Volume 86.9 fL (81-99); Mean Platelet Vol. 9.7 fl (6.2-12.0); Monocyte# 1.25 X10^3/uL; Monocyte% 11.7 % (0-10); NRBC Flagged by Analyzer 0 % (0-5); Neutrophil # 6.75 X10^3/uL (2.7-7.7); Neutrophil % 63.1 % (47-70); Platelet Count 248 K/mm3 (150-450); RBC Distribution Width CV 12.5 % (11.6-14.6); RBC Distribution Width SD 39.1 fl (35.1-43.9); Red Blood Count 3.89 M/mm3 (4.2-5.4); White Blood Count 10.7 K/mm3 (4.4-11.0)
[2021-03-30] MEDS: miSOPROStol 25 MCG TABLET VAGINAL (20:24)
[2021-03-30 20:43] VITALS: BP 107/58; PULSE 93
[2021-03-30 20:45] VITALS: PULSE 95; O2SAT 97
[2021-03-30 21:39] LABS: ALB/GLOB Ratio 0.7 RATIO (0.9-2.4); AST(SGOT) 23 U/L (15-37); Alanine Aminotransfer ALT/SGPT 33 U/L (13-56); Albumin, Serum 2.6 g/dL (3.2-5.0); Alkaline Phosphatase 180 U/L (45-117); Anion Gap 8 (5-15); BUN 6 mg/dL (7-18); BUN/Creat Ratio 9.6 RATIO (10-20); Calcium,Total 8.4 mg/dL (8.5-10.1); Chloride 108 mmol/L (98-107); Creatinine, Serum 0.62 mg/dL (0.55-1.02); EST Glomerular Filtration Rate 124 mL/min (>60); Est Glom Filt Rate - Afr Amer 150 mL/min (>60); Estimated Creatinine Clearance 139.92 ml/min; Globulin 3.9 g/dL (2.2-4.2); Glucose 99 mg/dL (74-106); Potassium 3.4 mmol/L (3.5-5.1); Protein, Total 6.5 g/dL (6.4-8.2); Sodium Level 139 mmol/L (136-145)
[2021-03-31] VITALS (39 sets, daily range): BP systolic 94–129; BP diastolic 52–80; PULSE 68–97; TEMP 36.6–37.3; O2SAT 97–100
[2021-03-31] MEDS: miSOPROStol 50 MCG TABLET VAGINAL ×2 (00:34→06:11)
[2021-03-31] MEDS: 0.9% Normal Saline Single 100 ML IV.SOLN. INTRA-UTER (06:41)
--- NOTE | 2021-03-31 07:52 | HP.PCM.OB_ITS ---
HPI - General General Date of Admission: 03/30/21 HPI Narrative SOPHIA GOLDMAN, is a 26 F who presents for IOL secondary to cholestasis with elevate dliver enzymes, severe itching, and gall bladder stones seen. T Bili also elevated. upon starting ursodiol she had normalizing blood values and improving symptoms. BMZ given march 27 and Maternal Data Information CHERYL Calculator Estimated Delivery Date Method Current WG Current Estimate 04/21/21 LMP (Certain) 37w 0d Other Estimates 04/21/21 Ultrasound #1 37w 0d PFSH PFSH Medical History Cholestasis Headache, migraine history of bone fractures History of tetanus, diphtheria, and acellular pertussis booster vaccination (Tdap) History of viral meningitis Hives Seasonal allergies Home Medications multivitamin no.47-iron fum 27 mg-folate no.1 1 mg-dha 300 mg capsule 1 cap PO DAILY 09/04/20 [History Last Taken 03/30/21] ursodiol 300 mg PO Q8H 03/30/21 [History Last Taken 03/29/21 18:30] Allergy/AdvReac Type Severity Reaction Status Date / Time Penicillins Allergy Mild hives Verified 03/30/21 20:48 Family History Father Thyroid cancer Myocardial infarction, Onset Age: 50 High cholesterol Grandfather Myocardial infarction, Onset Age: 50 Mother Thyroid disorder mega Social History household members: significant other housing: house current occupational status: employed Smoking Status: Never smoker alcohol intake: current alcohol intake frequency: a few times a month Alcohol type: beer, wine and hard liquor substance use type: does not use caffeine: Yes what type of physical activity do you participate in: walking, bicycling and additional details: horse riding seatbelt use: always do you feel safe at home: Yes additional social history: -Jacques History 1 Elective abortions Hx Para 0 Spontaneous abortions Hx # Term Pregnancies Ectopic pregnancies Hx # Pregnancies Multiple births # of living children Visit Details Expected Delivery Route/Plan Labor Preferences- CB/BF classes: online labor support person: [place] labor intervention preferences: pain management options preferred: epidural if needed cut cord/dad catch: yes : yes PP control planned: condoms discussed possible routes of delivery and associated risks: [] special requests: [] Plans covid status: nonimmune counseled regarding risk of covid in vs vaccination and declined vaccination flu vaccine: declines tdap vaccine: given rhogam: na LARC form signed: yes Problem list reviewed and updated with the most current plan of care details and appropriate orders placed. Relevant counseling for the gestational age provided. Continue routine care and follow up unless otherwise noted in visit notes/problem list details OB Flowsheet Initial Weight: 215 lb Date -?-?-?-?-?-?-?-?-?-?-?-?- EGA Weight BP Urine Prot -?-?-?-?-?-?-?-?-?-?-?-?- Glucose FHR FuHt Pres Dilation -?-?-?-?-?-?-?-?-?-?-?-?- Effaced St Visit Note 09/12/20 -?-?-?-?-?-?-?-?-?-?-?-?- 8w 3d 214 lb (-16 oz) -?-?-?-?-?-?-?-?-?-?-?-?- 163 -?-?-?-?-?-?-?-?-?-?-?-?- GP - CRL 16mm co nsistent with LMP. 10/10/20 -?-?-?-?-?-?-?-?-?-?-?-?- 12w 3d 204 lb (-11 lb) Negative -?-?-?-?-?-?-?-?-?-?-?-?- Negative 160 -?-?-?-?-?-?-?-?-?-?-?-?- SM- no vb crampi ng 11/05/20 -?-?-?-?-?-?-?-?-?-?-?-?- 16w 1d 205 lb 6 oz (-9 lb 10 oz) 116/60 Negative -?-?-?-?-?-?-?-?-?-?-?-?- Negative 155 -?-?-?-?-?-?-?-?-?-?-?-?- MH-no VB, LOF. Anatomy US ordered. NIPT LR. Carrier and AFP declined. 12/04/20 -?-?-?-?-?-?-?-?-?-?-?-?- 20w 2d 206 lb (-9 lb) 132/70 Negative -?-?-?-?-?-?-?-?-?-?-?-?- Negative 160 -?-?-?-?-?-?-?-?-?-?-?-?- GP - no LOF, VB, DFM, ctx. Decided on name - Colby Rubio. Anatomy scan next week. 12/30/20 -?-?-?-?-?-?-?-?-?-?-?-?- 24w 0d 206 lb (-9 lb) 132/82 Negative -?-?-?-?-?-?-?-?-?-?-?-?- Negative 155 -?-?-?-?-?-?-?-?--?-?-?-?- GP - no LOF, VB, DFM, ctx. Anatomy results reviewed. GP - no LOF, VB, DFM, ctx. H ave not received anatomy results - called to obtain. 01/27/21 -?-?-?-?-?-?-?-?-?-?-?--?- 28w 0d 204 lb 4 oz (-10 lb 12 oz) 128/70 Trace -?-?-?-?-?-?-?-?-?-?-?-?- Negative 149 28 -?-?-?-?-?-?-?-?-?-?-?-?- MH-No VB, LOF. G ood FM. 28 wk labs, tdap and larc. -No VB, LOF. Good FM. 28 wk labs, tdap and larc. Seen in ED for upper abdominal/chest pain. Has happened 4 times. thinks spasm of diaphragm and will see PCP. 02/12/21 -?-?-?-?-?-?-?-?-?-?-?-?- 30w 2d 205 lb 4 oz (-9 lb 12 oz) 120/80 Negative -?-?-?-?-?-?-?-?-?-?-?-?- Negative 150 30 -?-?-?-?-?-?-?-?-?-?-?-?- GP - no ctx, LOF , VB, DFM. Discussed poss esophageal spasms - encouraged pepcid BID scheduled. 02/26/21 -?-?-?-?-?-?-?-?-?-?-?-?- 32w 2d 204 lb 4 oz (-10 lb 12 oz) 120/70 -?-?-?-?-?-?-?-?-?-?-?-?- 145 32 -?-?-?-?-?-?-?-?-?-?-?-?- SM- no vb lof go od fm no reuglar ctx 03/12/21 -?-?-?-?-?-?-?-?-?-?-?-?- 34w 2d 205 lb 2 oz (-9 lb 14 oz) 106/78 Negative -?-?-?-?-?-?-?-?-?-?-?-?- Negative 155 34 Cephalic -?-?-?-?-?-?-?-?-?-?-?-?- GP - no LOF, VB, DFM, ctx. Denies complaints. Discussed COVID precautions in . 03/25/21 -?-?-?-?-?-?-?-?-?-?-?-?- 36w 1d 209 lb 4 oz (-5 lb 12 oz) 118/72 Negative -?-?-?-?-?-?-?-?-?-?-?-?- Negative 151 -?-?-?-?-?-?-?-?-?-?-?-?- MH-No VB, LOF. G ood FM GBS. 03/27/21 -?-?-?-?-?-?-?-?-?-?-?-?- 36w 4d 202 lb 6.15 oz (-12 lb 9.85 oz) 128/84 132/90 123/69 124/74 127/82 137/85 Negative mg/dl (Nega tive) -?-?-?-?-?-?-?-?-?-?-?-?- -?-?-?-?-?-?-?-?-?-?-?-?- 03/30/21 -?-?-?-?-?-?-?-?-?-?-?-?- 36w 6d 206 lb 6.4 oz (-8 lb 9.6 oz) 117/73 107/58 104/52 105/57 98/54 110/57 -?-?-?-?-?-?-?-?-?-?-?-?- -?-?-?-?-?-?-?-?-?-?-?-?- NST FHR Rate Baby A Baseline: 130 Variability:: Moderate Accelerations:: 15 x 15 Decelerations:: None NST Reactive:: Yes FHR Category:: Category I Uterine Activity:: irregular ROS Constitutional Constitutional: Reports systems reviewed and no addt'l complaints, except as documented Eyes Eyes: Denies change in vision ENT HEENT: Reports systems reviewed and no addt'l complaints, except as documented; Denies headache(s) Cardiovascular Cardiovascular: Reports systems reviewed and no addt'l complaints, except as documented; Denies chest pain or dyspnea Respiratory/Chest Respiratory/Chest: Reports systems reviewed and no addt'l complaints, except as documented Gastrointestinal Gastrointestinal: Reports systems reviewed and no addt'l complaints, except as documented; Denies abdominal pain Genitourinary Genitourinary: Reports systems reviewed and no addt'l complaints, except as documented, contractions Details: present (irregular) and movement Details: present; Denies dysuria or genital lesions Musculoskeletal Musculoskeletal: Reports systems reviewed and no addt'l complaints, except as documented Neurologic Neurologic: Reports systems reviewed and no addt'l complaints, except as documented Endocrine Endocrinology: Reports systems reviewed and no addt'l complaints, except as documented Vital Signs Vital Signs Vital Signs: 03/30/21 19:26 03/30/21 19:27 03/30/21 20:43 Temperature Temperature Source Pulse Rate 96 100 93 Blood Pressure 117/73 107/58 L BP Systolic 117 107 BP Diastolic 73 58 Pulse Ox 99 03/30/21 20:45 03/31/21 00:25 03/31/21 03:38 Temperature 98.9 F 98.1 F Temperature Source Temporal Temporal Pulse Rate 95 83 Blood Pressure 104/52 L BP Systolic 104 BP Diastolic 52 Pulse Ox 97 03/31/21 03:39 03/31/21 03:42 03/31/21 06:08 Temperature 97.8 F Temperature Source Pulse Rate 72 82 92 Blood Pressure 105/57 L 98/54 L BP Systolic 105 98 BP Diastolic 57 54 Pulse Ox 97 98 03/31/21 06:09 Temperature Temperature Source Pulse Rate 80 Blood Pressure 110/57 L BP Systolic 110 BP Diastolic 57 Pulse Ox Weight Weight: 206 lb 6.4 oz Body Mass Index (BMI) 31.4 Physical Exam Const alert, oriented x3, no apparent distress and healthy appearing HEENT normocephalic and moist oral mucous membranes Head and Scalp: atraumatic Neck full ROM, no lymphadenopathy, supple and thyroid normal General: trachea midline Lymph Lymphatic: no lymphadenopathy noted Chest inspection of chest normal Resp normal respiratory effort Cardio regular rate GI normal to inspection, nondistended, normoactive bowel sounds, soft to palpation and non-tender Inspection: gravid external exam normal Manual OB Exam: estimated gestational size appropriate, presentation cephalic, dilated, effaced and station Extremity normal to inspection General Extremity: Negative for edema Skin no rashes or lesions noted Neuro no focal motor deficits and deep tendon reflexes 2+ bilaterally Motor Exam: strength 5/5 throughout and clonus absent Psych mental status grossly normal Labs Labs Labs: Blood Type O POSITIVE Antibody Screen NEGATIVE Hct 33.8 % (37-47) L Hgb 11.6 g/dL (12.0-15.0) L Obstetrics US Syphilis Total Ab Non-reactive Rubella IgG Antibody Reactive (Nonreactive) Hep Bs Antigen Negative (Negative) Neisseria gonorrhoeae DNA (JAKE) Negative (Negative) HIV 1&2 Antibody Non-Reactive (Nonreactive) Glucose 1 Hr 50 gm 93 mg/dL (70-140) Miscellaneous Test Assessment & Plan (1) Cholestasis during : COMMENT: growth us and bpp, hep panel, bile acids sent, bmz x 2 plan IOL 37 (2) Abdominal pain during in third trimester: COMMENT: Elevated AST and T bili, right upper quadrant ultrasound ordered and possible CT abdomen pelvis. No leukocytosis or fever. IV fluids and IV pain medication given. STO (3) Supervision of normal first : QUALIFIERS: Trimester: first trimester Qualified Code(s): Z34.01 - Encounter for supervision of normal first , first trimester COMMENT: PRR CHERYL: 04/21/21, boy - Colby, Spouse: Jacques (4) : QUALIFIERS: Weeks of gestation: 34 weeks Qualified Code(s): Z3A.34 - 34 weeks gestation of COMMENT: declines carrier, and AFP, NIPT low risk. Anatomy US normal PLAN: Patient presents IOL, plan management for with cytotec then pitocin and fb. Pain management: open to epidurla preferes minimal intervention. GBS negative. Management of any complications: none I have reviewed the [facility] and made any clinically relevant updates.
--- NOTE | 2021-03-31 07:55 | PCM.PN.BLA ---
Progress Note 3 doses cytoec overnight, some sleep current tracing: FHT: 130 Moderate variability reactive no decelerations category I tracing [place]: q 2-5 Contractions reviewed tracing abnormalities since last note: no signfiicant A/P: fb placed, switch to pitocin once s/p cytotec window
[2021-03-31] MEDS: Oxytocin 30 units/NS 500 ml 30 UNITS/500 ML IV.SOLN IV (10:11)
[2021-03-31] MEDS: Lactated Ringers 1,000 ML 50 ML IV (13:35)
[2021-03-31] MEDS: Lactated Ringers 500 ML 999 ML IV ×2 (14:20→19:18)
[2021-03-31] MEDS: Ondansetron 4 MG/2 ML Vial IV (14:48)
[2021-03-31] MEDS: fentaNYL-bupivacaine (epidural) 100 ML BAG EPIDURAL ×2 (15:37→19:53)
[2021-03-31] MEDS: Lactated Ringers 1,000 ML 200 ML IV (21:37)
[2021-03-31] MEDS: Ursodiol 250 MG Tablet PO (23:31)
[2021-04-01] VITALS (29 sets, daily range): BP systolic 90–124; BP diastolic 42–77; PULSE 69–104; RESP 16–18; TEMP 35.8–37.4; O2SAT 95–100
[2021-04-01] MEDS: fentaNYL-bupivacaine (epidural) 100 ML BAG EPIDURAL (00:50)
[2021-04-01] MEDS: Lactated Ringers 500 ML 999 ML IV (00:59)
[2021-04-01] MEDS: 0.9% Saline Lock 10 ML Syringe IV (01:47)
[2021-04-01] MEDS: Amnioinfusion- 0.9% NS 1,000 ML IV.SOLN. INTRA-UTER (01:51)
[2021-04-01] MEDS: Lactated Ringers 1,000 ML 200 ML IV (03:20)
[2021-04-01] MEDS: Acetaminophen 500 MG Tablet PO (04:55)
[2021-04-01] MEDS: Oxytocin 30 units/NS 500 ml 30 UNITS/500 ML IV.SOLN 334 UNITS IV (06:13)
--- NOTE | 2021-04-01 06:48 | OP.PCM_ITS ---
Assessment & Plan (1) : QUALIFIERS: Weeks of gestation: 34 weeks Qualified Code(s): Z3A.34 - 34 weeks gestation of COMMENT: declines carrier, and AFP, NIPT low risk. Anatomy US normal; GBS neg (2) Supervision of normal first : QUALIFIERS: Trimester: first trimester Qualified Code(s): Z34.01 - Encounter for supervision of normal first , first trimester COMMENT: PRR CHERYL: 04/21/21, boy - Colby, Spouse: Jacques (3) Cholestasis during : COMMENT: growth us and bpp, hep panel, bile acids sent, bmz x 2 plan IOL 37 (4) Vaginal delivery: COMMENT: SM IOL cholestasis 37 boy colby Maternal Data Information CHERYL Calculator Estimated Delivery Date Method Current WG Current Estimate 04/21/21 LMP (Certain) 37w 1d Other Estimates 04/21/21 Ultrasound #1 37w 1d Vaginal Delivery Operative Information Date of Procedure: 04/01/21 Pre-Operative Diagnosis: iol Post-Operative Diagnosis: same Surgery / Procedure Performed: Spontaneous Vaginal Delivery Type of Anesthesia: Epidural Special Medications: none Estimated Blood Loss: 300 Fluids Replaced: crystalloid Findings Description of Procedure: Patient began pushing and delivered the head in the ERINN presentation. The head was delivered atraumatically and a loose nuchal cord ?1 was identified and the delivered through without complication. The anterior and posterior shoulders delivered without complication followed by the rest of the infant and the was placed on the maternal abdomen. Delayed cord clamping was employed for approximately 60 seconds. Cord was clamped and cut and gentle traction was applied to the cord and the placenta delivered spontaneously immediately following it was noted to be intact with three-vessel cord. The perineum and vagina were inspected and noted to have a first degree perineal laceration repaired in the usual fashionw ith 3-0 vicryl rapide. EBL was 300 cc. Patient and tolerated delivery well. Presentation: ERINN Amniotic Membrane Rupture Type: Artificial Amniotic Fluid Description: Clear Placental Delivery Description: Spontaneous Placenta Disposition: [facility] Cord Vessel Description: 3 Vessels Cord Entanglement: Around neck x 1, loose A Gender: Male Delayed Cord Clamping: Yes Post Vaginal Delivery Medications Given After Delivery: IV Pitocin Episiotomy Description: None Laceration: Perineal Extension/lac and 1st degree Complication Complications: None Procedures Urinary/Genital [id number]: [id number] Vaginal Delivery [facility] pkg
--- NOTE | 2021-04-01 07:18 | PCM.DC ---
Discharge Instructions Diet Discharge Diet: No restrictions Activity Discharge Activity: Return to Normal Activity, May Not Drive (while taking narcotic pain medications.) and May Shower May resume sexual activity in: 4-6 weeks Dressing / Incision Call your doctor if your incision/area has: Continuous Slow Oozing, Sudden Increased Bleeding, Increased Pain/ Swelling, Increased Redness and Foul Smelling Discharge Follow Up Care Please Follow Up With: Migdalia Echols MD When: Call [phone] to make an appointment with your doctor in 6 weeks. If you had elevated blood pressure or 4th degree laceration, you will need to be seen in 2 weeks. Test Results: Test results from this visit will be discussed in further detail at your follow-up appointment, if applicable. Discharge Plan Admission Admit Date/Time: 03/30/21 18:55 Primary Reason for Your Visit: vaginal delivery Attending Provider: Migdalia Echols Primary Care Provider: Marlen Jeffries Discharge Orders/Prescriptions Prescriptions: No Action PNV-DHA 27 mg iron-1 mg -300 mg capsule 1 cap PO DAILY RF: 0 ursodiol 300 mg capsule 300 mg PO Q8H RF: 0 Referrals / Follow Up: Marlen Jeffries MD [Primary Care Provider] - Disposition Disposition (needs filled in before D/C Order can be placed): Home, Self Care
[2021-04-01] MEDS: Naproxen 500 MG Tablet PO ×2 (12:44→20:54)
[2021-04-01] MEDS: Senna/Docusate Sodium 1 Tablet PO (12:52)
[2021-04-01] MEDS: Acetaminophen 500 MG Tablet 1000 MG PO (15:38)
[2021-04-02] MEDS: Acetaminophen 500 MG Tablet 1000 MG PO (01:45)
--- NOTE | 2021-04-02 02:47 | NURSING ---
This RN assuming care of patient and . Report received from Bob MENDOZA.
[2021-04-02] MEDS: oxyCODONE 5 MG Tablet PO (03:46)
[2021-04-02 03:55] VITALS: BP 112/66; PULSE 81; RESP 16; TEMP 37
[2021-04-02 07:14] LABS: Absolute Neutrophil Count 12.8 X10^3/uL (2.0-7.7); Basophil# 0.05 X10^3/uL; Basophil% 0.3 % (0-1); Eosinophils% 0.6 % (0-5); Hematocrit 33.3 % (37-47); Hemoglobin 11.3 g/dL (12.0-15.0); Lymphocyte % 9.7 % (19-41); Mean Corp Hgb Conc 33.9 g/dL (32-36); Mean Corpuscular Hgb 29.8 pg (27.0-32.0); Mean Corpuscular Volume 87.9 fL (81-99); Monocyte# 0.84 X10^3/uL; Monocyte% 5.4 % (0-10); NRBC Flagged by Analyzer 0 % (0-5); Neutrophil # 12.79 X10^3/uL (2.7-7.7); Neutrophil % 82.9 % (47-70); Platelet Count 217 K/mm3 (150-450); RBC Distribution Width CV 12.6 % (11.6-14.6); RBC Distribution Width SD 40.1 fl (35.1-43.9); Red Blood Count 3.79 M/mm3 (4.2-5.4); White Blood Count 15.5 K/mm3 (4.4-11.0)
[2021-04-02 07:32] LABS: ALB/GLOB Ratio 0.5 RATIO (0.9-2.4); AST(SGOT) 57 U/L (15-37); Alanine Aminotransfer ALT/SGPT 36 U/L (13-56); Alkaline Phosphatase 230 U/L (45-117); Anion Gap 4 (5-15); BUN 6 mg/dL (7-18); Calcium,Total 8.2 mg/dL (8.5-10.1); Chloride 109 mmol/L (98-107); EST Glomerular Filtration Rate 129 mL/min (>60); Est Glom Filt Rate - Afr Amer 156 mL/min (>60); Estimated Creatinine Clearance 144.59 ml/min; Globulin 3.8 g/dL (2.2-4.2); Glucose 107 mg/dL (74-106); Potassium 4.1 mmol/L (3.5-5.1); Protein, Total 5.8 g/dL (6.4-8.2); Sodium Level 138 mmol/L (136-145)
[2021-04-02 08:00] VITALS: BP 106/62; PULSE 82; RESP 18; TEMP 36.6; O2SAT 95
--- NOTE | 2021-04-02 08:04 | CON.PCM_ITS ---
Assessment & Plan Assessment/Plan (1) Right upper quadrant pain: PLAN: I have been consulted in conjunction with Dr. Paz. I have discussed this patient with Dr. Paz and Dr. Hitchcock. Will plan to obtain MRCP for further evaluation. Pending these results, will depend on the future plan. If acute cholecystitis, Dr. Paz will plan to perform a laparoscopic cholecystectomy with intraoperative cholangiogram. If a stone is noted within the duct, Dr. Hitchcock will plan to perform an ERCP. If no acute cholecystitis is noted, then patient will be evaluated and scheduled as an outpatient. Patient and her have had the opportunity to ask and have questions answered. Patient verbally understands and agrees with the plan. Thank you for allowing us to participate in this patient's care. HPI Consult Data Date of Consult: 04/02/21 HPI Narrative HPI Narrative: SOPHIA GOLDMAN, is a 26 F who has had a new vaginal delivery of a baby boy yesterday morning. Patient states since last night at 7 pm, she has had epigastric pain/right upper quadrant pain. She noted last night having a somewhat regular diet which included caesar salad and dressing. Patient notes her pain has been more constant since that time. She is currently having epigastric/RUQ pain. She noted having similar pain last week and was evaluated by Dr. Echols who ordered lab work and a gallbladder u/s. Ultrasound demonstrated tiny gallstones. No acute cholecystitis noted. She had liver enzymes last week. Total Bilirubin on 03/27 was 1.4, 03/28 1.9, and 04/02 1.6. She had a normal total bilirubin on 03/30. She denies any blood pressure concerns during her . She notes having some nausea and vomiting this morning. She has noted a lack of appetite since last week. Patient states she has been having similar symptoms since November. She denies previous abdominal surgeries. She notes a history at age 13, where she had meningitis. She is currently and welcomed a baby boy yesterday morning. [facility] Medical History (Updated 04/02/21 @ 08:57 by Magalis SMITH, PAEdC) Cholestasis Headache, migraine history of bone fractures History of tetanus, diphtheria, and acellular pertussis booster vaccination (Tdap) History of viral meningitis Hives Right upper quadrant pain Seasonal allergies Home Medications multivitamin no.47-iron fum 27 mg-folate no.1 1 mg-dha 300 mg capsule 1 cap PO DAILY 09/04/20 [History Last Taken 03/30/21] ursodiol 300 mg PO Q8H 03/30/21 [History Last Taken 03/29/21 18:30] Allergy/AdvReac Type Severity Reaction Status Date / Time Penicillins Allergy Mild hives Verified 03/30/21 20:48 Family History Father Thyroid cancer Myocardial infarction, Onset Age: 50 High cholesterol Grandfather Myocardial infarction, Onset Age: 50 Mother Thyroid disorder mega Social History household members: significant other housing: house current occupational status: employed Smoking Status: Never smoker alcohol intake: current alcohol intake frequency: a few times a month Alcohol type: beer, wine and hard liquor substance use type: does not use caffeine: Yes what type of physical activity do you participate in: walking, bicycling and additional details: horse riding seatbelt use: always do you feel safe at home: Yes additional social history: -Jacques ROS Constitutional Constitutional: Reports systems reviewed and no addt'l complaints, except as documented Eyes Eyes: Reports systems reviewed and no addt'l complaints, except as documented ENT HEENT: Reports systems reviewed and no addt'l complaints, except as documented Cardiovascular Cardiovascular: Reports systems reviewed and no addt'l complaints, except as documented Respiratory/Chest Respiratory/Chest: Reports systems reviewed and no addt'l complaints, except as documented Gastrointestinal Gastrointestinal: Reports systems reviewed and no addt'l complaints, except as documented Genitourinary Genitourinary: Reports systems reviewed and no addt'l complaints, except as documented Musculoskeletal Musculoskeletal: Reports systems reviewed and no addt'l complaints, except as documented Integumentary Integumentary: Reports systems reviewed and no addt'l complaints, except as documented Neurologic Neurologic: Reports systems reviewed and no addt'l complaints, except as documented Psychiatric Psychiatric: Reports systems reviewed and no addt'l complaints, except as docum ented Endocrine Endocrinology: Reports systems reviewed and no addt'l complaints, except as documented Hematologic/Lymphatic Hematologic/Lymphatic: Reports systems reviewed and no addt'l complaints, except as documented Allergic/Immunologic Allergic/Immunologic: Reports systems reviewed and no addt'l complaints, except as documented Physical Exam Const alert, oriented x3 and no apparent distress HEENT normocephalic and head/scalp atraumatic Eyes PERRL and EOMs intact bilaterally Neck full ROM Lymph Lymphatic: no lymphadenopathy noted Resp normal respiratory effort and normal air movement Cardio regular rate and regular rhythm GI soft to palpation Auscultation: normoactive bowel sounds Palpation: tender epigastric, RUQ and Gonzalez's sign and guarding RUQ no CVA tenderness Back/Spine no CVA tenderness Extremity normal to inspection Skin no rashes or lesions noted Neuro oriented x3 and CN's II-XII intact bilaterally Psych mental status grossly normal, thought process normal, cooperative and affect normal Lab / Micro Data Result Diagrams: 04/02/21 07:05 04/02/21 07:05 Labs: Laboratory Results - last 24 hr 04/02/21 07:05: WBC 15.5 H, RBC 3.79 L, Hgb 11.3 L, Hct 33.3 L, MCV 87.9, MCH 29.8, MCHC 33.9, RDW Std Deviation 40.1, RDW Coeff of Behzad 12.6, Plt Count 217, MPV 10.0, Immature Gran % (Auto) 1.100 H, Neut % (Auto) 82.9 H, Lymph % (Auto) 9.7 L, [place] % (Auto) 5.4, Eos % (Auto) 0.6, Baso % (Auto) 0.3, Absolute Neuts (auto) 12.8 H, Absolute Lymphs (auto) 1.50, Nucleated RBC % 0 04/02/21 07:05: Sodium 138, Potassium 4.1, Chloride 109 H, Carbon Dioxide 25.0, Anion Gap 4 L, BUN 6 L, Creatinine 0.60, Estim Creat Clear Calc 144.59, Est GFR (MDRD) Af Amer 156, Est GFR (MDRD) Non-Af 129, BUN/Creatinine Ratio 10.0, Glucose 107 H, Calcium 8.2 L, Total Bilirubin 1.60 H, AST 57 H, ALT 36, Alkaline Phosphatase 230 H, Total Protein 5.8 L, Albumin 2.0 L, Globulin 3.8, Albumin/Globulin Ratio 0.5 L Procedure Criteria Type of Procedure Procedure Type: Elective Elective Risks - COVID COVID Risk Discussion: The surgeon/proceduralist and patient have discussed in d etail the risk of exposure to and/or potential harm posed by the COVID-19 virus with having a surgery/procedure at this time versus the risk of delaying the surgery/procedure. It is not possible to know either the risk of delaying the surgery or procedure or chance of getting an infection with perfect accuracy, but a joint decision was made between the patient and the surgeon/proceduralist to proceed at this time with the scheduled surgery/procedure as indicated on the consent form. Charges/Coding Visit Charges Office Visits / Consults: [id number] IP Consult L3
--- NOTE | 2021-04-02 08:15 | MRI_ITS ---
STUDY: MR MRCP AND ABDOMEN WITHOUT CONTRAST REASON FOR EXAM: Female, 26 years old. RUQ pain off and on since November. TECHNIQUE: Routine abdominal MR angiographic protocol was performed. 3D reconstructions were reviewed. Standard MRCP technique was utilized. COMPARISON: 03/27/2021. FINDINGS: Gall Bladder: Distended gallbladder without fixed intraluminal filling defect. Cystic duct: Normal with no demonstrated fixed filling defect. Intrahepatic ducts: Normal visualized intrahepatic ducts with no demonstrated fixed filling defect, dilation or stricture. Common hepatic duct: Normal with no demonstrated fixed filling defect, dilation or stricture. Common bile duct: Mildly prominent caliber measuring up to 9 mm without fixed intraluminal filling defect identified. Pancreatic duct: Normal with no demonstrated fixed filling defect, dilation or stricture. Other: There is mild periportal edema. Liver measures up to 21.8 cm in craniocaudal dimension. The spleen, kidneys, and pancreas are unremarkable. MRI/MRCP Abdomen without Contrast IMPRESSION: Distended gallbladder and prominent common bile duct without a visualized intraluminal filling defect or stricture. Electronically Signed: Rg Belle MD at 13:39 EDT Tel , Service support ,
--- NOTE | 2021-04-02 16:43 | PCM.PN.OB ---
Subjective Subjective LATE ENTRY seen at 9:30 am - co n and v overnight intemrittent severe RUQ pain, will get surgery evaluation this am Objective Data Objective Data Vital Signs: Vital Signs Temp Pulse Resp BP Pulse Ox 97.8 F 82 18 106/62 95 04/02/21 08:00 04/02/21 08:00 04/02/21 08:00 04/02/21 08:00 04/02/21 08:00 Oxygen Delivery Method Room Air Weight: 206 lb 6.4 oz Body Mass Index (BMI) 31.4 Intake & Output: Intake and Output for Last 24 Hours 03/31/21 04/01/21 04/02/21 23:59 23:59 23:59 Intake Total 3453.73 / 3453.73 2528.04 / 2528.04 Output Total 3100 / 3100 1550 / 1550 200 / 200 Balance 353.73 / 353.73 978.04 / 978.04 -200 / -200 Lab / Micro Data Result Diagrams: 04/02/21 07:05 04/02/21 07:05 Labs: Laboratory Results - last 24 hr 04/02/21 07:05: WBC 15.5 H, RBC 3.79 L, Hgb 11.3 L, Hct 33.3 L, MCV 87.9, MCH 29.8, MCHC 33.9, RDW Std Deviation 40.1, RDW Coeff of Behzad 12.6, Plt Count 217, MPV 10.0, Immature Gran % (Auto) 1.100 H, Neut % (Auto) 82.9 H, Lymph % (Auto) 9.7 L, [place] % (Auto) 5.4, Eos % (Auto) 0.6, Baso % (Auto) 0.3, Absolute Neuts (auto) 12.8 H, Absolute Lymphs (auto) 1.50, Nucleated RBC % 0 04/02/21 07:05: Sodium 138, Potassium 4.1, Chloride 109 H, Carbon Dioxide 25.0, Anion Gap 4 L, BUN 6 L, Creatinine 0.60, Estim Creat Clear Calc 144.59, Est GFR (MDRD) Af Amer 156, Est GFR (MDRD) Non-Af 129, BUN/Creatinine Ratio 10.0, Glucose 107 H, Calcium 8.2 L, Total Bilirubin 1.60 H, AST 57 H, ALT 36, Alkaline Phosphatase 230 H, Total Protein 5.8 L, Albumin 2.0 L, Globulin 3.8, Albumin/Globulin Ratio 0.5 L Micro: Microbiology 03/30/21 20:15 Nasal Secretion SARS-CoV-2 Antigen (Rapid) - Final Radiography Diagnostic Testing: Radiology Impression MRCP 04/02/21 08:15 IMPRESSION: Distended gallbladder and prominent common bile duct without a visualized intraluminal filling defect or stricture. Electronically Signed: Rg Belle MD at 13:39 EDT Tel , Service support , ROS Constitutional Constitutional: Reports systems reviewed and no addt'l complaints, except as documented Cardiovascular Cardiovascular: Reports systems reviewed and no addt'l complaints, except as documented Respiratory/Chest Respiratory/Chest: Reports systems reviewed and no addt'l complaints, except as documented Gastrointestinal Gastrointestinal: Reports systems reviewed and no addt'l complaints, except as documented Physical Exam Const alert, oriented x3 and no apparent distress HEENT Head and Scalp: atraumatic Resp normal respiratory effort GI soft to palpation and non-tender Bimanual Exam - Vag & Uterus: uterus non-tender Uterus Palpation: uterus fundus firm (below Umbilicus) Assessment & Plan (1) Right upper quadrant pain: COMMENT: surgery consult and MRCP ordered (2) Abdominal pain affecting : COMMENT: Seen in ED. States more in chest, thinks spasm of diaphragm. Will see PCP. (3) Cholestasis during : COMMENT: growth us and bpp, hep panel, bile acids sent, bmz x 2 plan IOL 37 (4) Vaginal delivery: COMMENT: SM IOL cholestasis 37 boy shellie PLAN: s/p PPD # 1 1. routine post delivery care 2. breast feeding- support given 3. rh positive 4. rubella immune
[2021-04-02 17:00] VITALS: BP 102/55; PULSE 91; RESP 18; TEMP 36.6; O2SAT 97
[2021-04-02] MEDS: 0.9% Saline Lock 10 ML Syringe IV (17:09)
[2021-04-02] MEDS: Lactated Ringers 1,000 ML 30 ML IV (17:10)
[2021-04-02 20:30] VITALS: BP 103/57; PULSE 79; RESP 16; TEMP 36.4; O2SAT 97
[2021-04-03] VITALS (13 sets, daily range): BP systolic 103–136; BP diastolic 62–89; PULSE 57–83; RESP 16–18; TEMP 36.4–36.8; O2SAT 95–98; BMI 31.4
--- NOTE | 2021-04-03 | GALL_PTH ---
PATIENT: SOPHIA GOLDMAN LOC: [facility] U#:[id number] AGE/SX: 26/F ROOM: WP007 RE03/30/[address]: Dr. Migdalia Echols MD : 1995 BED: 1 DIS: 04/04/2021 SPEC #: [id number] RECD: 04/03/21 13:59 STATUS: CORBIN PHIPPSOsman #: [id number] JOSLYN: 04/03/21 00:[address]: Migdalia Echols DEPT: SURGICAL PATHOLOGY RECD BY: Boston Canela ENTERED: 04/04/21 09:08 SP TYPE: PETER COLBERT DR: Dr. Marlen Jeffries MD Tissues: Gallbladder, NOS Procedures: Surgery Specimen Level III HEADER OPERATION: Laparoscopic cholecystectomy with IOC PRE-OP DIAGNOSIS: Acute cholelithiasis TISSUE SUBMITTED: Gallbladder MICROSCOPIC DIAGNOSIS Gallbladder, cholecystectomy: Chronic cholecystitis. Benign pericystic lymph node. AM:sandy 04/07/2021 MICROSCOPIC DESCRIPTION Slides are reviewed. GROSS DESCRIPTION Received is one container labeled with the patient's name and designated gallbladder. The specimen consists of a previously, partially opened gallbladder measuring 8 cm in length and 3 cm in diameter. The external surface is pink-ho, smooth and glistening for the most part. Focally it is granular, hemorrhagic and contains cautery artifact. The gallbladder contains green-yellow mucoid bile. No stones are identified in the container or in the gallbladder. The mucosa is bile-stained and without any mass lesions. The gallbladder wall measures up to 0.4 cm in thickness. Close to the cystic duct, an ovoid nodule is noted, a possible lymph node, measuring 0.5 cm in greatest dimension. [employer] sections from the gallbladder and the cystic duct including entire possible lymph node are submitted in one cassette. / SJ:sandy 04/04/21 TC:3 CPT: 83213
[2021-04-03] MEDS: metroNIDAZOLE 500 MG/100 ML BAG 100 MG IV (08:30)
--- NOTE | 2021-04-03 09:40 | RAD_ITS ---
STUDY: INTRAOPERATIVE CHOLANGIOGRAM. REASON FOR EXAM: Female, 26 years old. Laparoscopic cholecystectomy. FLUOROSCOPY TIME (if supplied): ( 6.1 seconds ) minutes/seconds. A cine loop of 33 images was submitted. TECHNIQUE: Intraoperative Cholangiogram was performed by the surgeon. Imaging was submitted. COMPARISON: None. FINDINGS: The intrahepatic biliary ducts are unremarkable. The common bile duct is not dilated. No intraluminal filling defect is seen. There is free flow of contrast into the duodenum. RAD/Cholangiogram/ O R,Initial IMPRESSION: Unremarkable intraoperative cholangiogram. Electronically Signed: Will Mena MD at 13:35 EDT , Service support ,
[2021-04-03 09:47] LABS: Absolute Lymphocyte Count 1.97 X10^3/uL (0.83-4.51); Absolute Neutrophil Count 6.7 X10^3/uL (2.0-7.7); Basophil# 0.07 X10^3/uL; Basophil% 0.7 % (0-1); Eosinophil# 0.21 X10^3/uL; Eosinophils% 2.2 % (0-5); Hemoglobin 10.6 g/dL (12.0-15.0); Lymphocyte # 1.97 X10^3/ul (0.83-4.51); Lymphocyte % 20.3 % (19-41); Mean Corp Hgb Conc 34.2 g/dL (32-36); Mean Corpuscular Hgb 30.5 pg (27.0-32.0); Mean Corpuscular Volume 89.1 fL (81-99); Mean Platelet Vol. 9.9 fl (6.2-12.0); Monocyte# 0.67 X10^3/uL; Monocyte% 6.9 % (0-10); NRBC Flagged by Analyzer 0 % (0-5); Neutrophil # 6.67 X10^3/uL (2.7-7.7); Neutrophil % 68.9 % (47-70); Platelet Count 192 K/mm3 (150-450); RBC Distribution Width CV 12.8 % (11.6-14.6); RBC Distribution Width SD 41.5 fl (35.1-43.9); Red Blood Count 3.48 M/mm3 (4.2-5.4); White Blood Count 9.7 K/mm3 (4.4-11.0)
[2021-04-03 09:50] LABS: AST(SGOT) 44 U/L (15-37); Alanine Aminotransfer ALT/SGPT 44 U/L (13-56); Alkaline Phosphatase 202 U/L (45-117); Anion Gap 8 (5-15); BUN 4 mg/dL (7-18); BUN/Creat Ratio 7.7 RATIO (10-20); Bilirubin, Direct 0.22 mg/dL (0.00-0.30); Calcium,Total 8.4 mg/dL (8.5-10.1); Chloride 107 mmol/L (98-107); Creatinine, Serum 0.52 mg/dL (0.55-1.02); EST Glomerular Filtration Rate 153 mL/min (>60); Est Glom Filt Rate - Afr Amer 185 mL/min (>60); Estimated Creatinine Clearance 166.83 ml/min; Globulin 3.5 g/dL (2.2-4.2); Glucose 81 mg/dL (74-106); Potassium 3.6 mmol/L (3.5-5.1); Protein, Total 5.5 g/dL (6.4-8.2); Sodium Level 141 mmol/L (136-145)
[2021-04-03] MEDS: Ciprofloxacin 400 MG/200 ML BAG 200 MG IV (09:50)
[2021-04-03] MEDS: Bupivacaine Mpf 0.5% 30 ML VIAL (10:30)
--- NOTE | 2021-04-03 10:53 | OP.PCM_ITS ---
Report of Operation Date of Procedure: 04/03/21 Pre-Operative Diagnosis: acute cholecystitis Post-Operative Diagnosis: same Surgery/Procedure Performed:: Laparoscopic cholecystectomy with grams Surgeon: Rachana Paz Type of Anesthesia: General/Supplemental Anesthesiologist: Pio Leslie Special Medications: Patient on Cipro/Flagyl IV for acute cholecystitis Specimen's removed: Gallbladder Estimated Blood Loss (mL): < 10 cc Description of Procedure: Indications this is a 26 year-old female who had been having issues develop right upper quadrant pain and was found to have sludge/cholelithiasis on ultrasound however she was in her third trimester. Patient just delivered baby boy 2 days ago and had increased right upper quadrant pain. Laparoscopic cholecystectomy was elected. Description procedure: The patient was placed on operating table in supine position. General Anesthesia was induced. A timeout was completed verifying correct patient, procedure, site, position and special equipment prior to beginning procedure. The abdomen was prepped and draped in usual sterile fashion. An incision was made in the natural skin line above the umbilicus. The fascia was elevated and incised. The peritoneum was elevated and incised. Entry into the peritoneum was confirmed visually and no bowel was noted in the vicinity of the incision. Macias trocar was placed. The abdomen was insufflated with carbon dioxide to a pressure of 12-15 mmHg. Patient tolerated insufflation well. The laparoscope was then inserted and abdomen inspected. No injuries from initial trocar placement were noted. Additional trochars were then inserted in the following locations 5 mm trocar in the epigastrium and 2 more 5 mm trochars along the right costal margin. The abdomen was inspected no abnormalities were found. The table is placed in reverse Trendelenburg position with the right side up. The adhesions between the gallbladder and omentum were lysed sharply. The dome of the gallbladder was grasped with atraumatic grasper passed through the lateral port and retracted over the dome of the liver. Infundibulum was then grasped with atraumatic grasper through the midclavicular port and retracted to the right lower quadrant. This maneuver exposed Calot's triangle. The peritoneum overlying the gallbladder infundibulum was then incised and cystic duct and artery identified and circumferentially dissected. Morales catheter was used for cholangiograms. The cholangiogram showed good filling of the common bile duct into the duodenum with no filling defects, good filling of the right and left bile ducts as well. The cystic duct and artery were then doubly clipped and divided close to the gallbladder. The gallbladder then dissected from its peritoneal attachments by electrocautery. Hemostasis was checked and the gallbladder and contained stones were removed using the endoscopic retrieval bag through the umbilical port. The gallbladder is passed off table as specimen. The gallbladder fossa was copiously irrigated with saline and hemostasis obtained. There is no evidence of bleeding from the gallbladder fossa or cystic artery leakage of bile from the cystic duct stump. Secondary trochars removed under direct vision. No bleeding was noted the trocar sites. The laparoscope was withdrawn and umbilical trocar removed. The abdomen was allowed to collapse. The fascia of the 12 mm trocar was closed with a [id number] 0 Vicryl suture. The skin was closed with sutures of 4-0 Monocryl and Steri-Strips. The orogastric tube was removed and the patient was extubated. The patient tolerated procedure well and was taken to the [facility]est[facility] care [facility] in stable condition. Complications None
--- NOTE | 2021-04-03 10:57 | EX.PCM.DISCH ---
Discharge Instructions Diet Discharge Diet: No restrictions Activity Discharge Activity: May Not Drive (If taking narcotics) and May Shower (In 1 day, no baths) May resume sexual activity in: 4-6 weeks Lifting Restrictions: No lifting greater than 20 pounds x 2 weeks Dressing / Incision Call your doctor if your incision/area has: Continuous Slow Oozing, Sudden Increased Bleeding, Increased Pain/ Swelling, Increased Redness and Foul Smelling Discharge Call your doctor if you observe: Fever of 101 or Higher Remove Dressing in: 2 days Cleanse incision/area with: Soap & Water Additional Dressing/Incision Instructions:: Steri-Strips should fall off in 7 to 10 days of the do not fall if okay to remove after 10 days. Follow Up Care Please Follow Up With: Migdalia Echols MD Test Results: Test results from this visit will be discussed in further detail at your follow-up appointment, if applicable. Discharge Plan Admission Admit Date/Time: 03/30/21 18:55 Primary Reason for Your Visit: vaginal delivery Attending Provider: Migdalia Echols Primary Care Provider: Marlen Jeffries Discharge Orders/Prescriptions Prescriptions: New oxycodone-acetaminophen [Percocet] 5-325 mg tablet 1 - 2 tab PO Q6H PRN (Reason: pain) 3 Days Qty: 10 RF: 0 No Action PNV-DHA 27 mg iron-1 mg -300 mg capsule 1 cap PO DAILY RF: 0 ursodiol 300 mg capsule 300 mg PO Q8H RF: 0 Referrals / Follow Up: Marlen Jeffries MD [Primary Care Provider] - Disposition Disposition (needs filled in before D/C Order can be placed): Home, Self Care
[2021-04-03] MEDS: Lactated Ringers 1,000 ML 30 ML IV (11:16)
--- NOTE | 2021-04-03 12:37 | NURSING ---
This nursing educator reviewed the documentation completed by Merna Bains student nurse and it is complete.
--- NOTE | 2021-04-03 13:19 | NURSING ---
Pt off floor at surgery from [id number].
[2021-04-03] MEDS: Senna/Docusate Sodium 1 Tablet PO (17:54)
[2021-04-03] MEDS: Acetaminophen 500 MG Tablet 1000 MG PO (17:54)
[2021-04-03] MEDS: Naproxen 500 MG Tablet PO (20:15)
[2021-04-04] MEDS: Acetaminophen 500 MG Tablet 1000 MG PO (00:14)
[2021-04-04 03:15] VITALS: BP 129/88; PULSE 98; RESP 18; TEMP 36.8; O2SAT 97
[2021-04-04] MEDS: Naproxen 500 MG Tablet PO (04:28)
--- NOTE | 2021-04-04 08:06 | PCM.PN.OB ---
Subjective Subjective Patient doing well without complaints. Tolerating PO. Ambulating and voiding without difficulty. infant feeding well. Denies chest pain, shortness of breath, calf pain/swelling, fevers, chills, lightheadedness. Objective Data Objective Data Vital Signs: Vital Signs Temp Pulse Resp BP Pulse Ox 98.2 F 98 18 129/88 H 97 04/04/21 03:15 04/04/21 03:15 04/04/21 03:15 04/04/21 03:15 04/04/21 03:15 Oxygen Delivery Method Room Air Weight: 206 lb 6.4 oz Body Mass Index (BMI) 31.4 Intake & Output: Intake and Output for Last 24 Hours 04/02/21 04/03/21 04/04/21 23:59 23:59 23:59 Intake Total 1498.5 / 1498.5 Output Total 200 / 200 Balance -200 / -200 1498.5 / 1498.5 Lab / Micro Data Result Diagrams: 04/03/21 09:26 04/03/21 09:26 Labs: Laboratory Results - last 24 hr 04/03/21 09:26: WBC 9.7, RBC 3.48 L, Hgb 10.6 L, Hct 31.0 L, MCV 89.1, MCH 30.5, MCHC 34.2, RDW Std Deviation 41.5, RDW Coeff of Behzad 12.8, Plt Count 192, MPV 9.9, Immature Gran % (Auto) 1.000 H, Neut % (Auto) 68.9, Lymph % (Auto) 20.3, [place] % (Auto) 6.9, Eos % (Auto) 2.2, Baso % (Auto) 0.7, Absolute Neuts (auto) 6.7, Absolute Lymphs (auto) 1.97, Nucleated RBC % 0 04/03/21 09:26: Sodium 141, Potassium 3.6, Chloride 107, Carbon Dioxide 26.0, Anion Gap 8, BUN 4 L, Creatinine 0.52 L, Estim Creat Clear Calc 166.83, Est GFR (MDRD) Af Amer 185, Est GFR (MDRD) Non-Af 153, BUN/Creatinine Ratio 7.7 L, Glucose 81, Calcium 8.4 L, Total Bilirubin 0.50, Direct Bilirubin 0.22, AST 44 H, ALT 44, Alkaline Phosphatase 202 H, Total Protein 5.5 L, Albumin 2.0 L, Globulin 3.5 Micro: Microbiology 03/30/21 20:15 Nasal Secretion SARS-CoV-2 Antigen (Rapid) - Final Radiography Diagnostic Testing: Radiology Impression Cholangiogram 04/03/21 09:40 IMPRESSION: Unremarkable intraoperative cholangiogram. Electronically Signed: Will Mena MD at 13:35 EDT , Service support , ROS Constitutional Constitutional: Reports systems reviewed and no addt'l complaints, except as documented Cardiovascular Cardiovascular: Reports systems reviewed and no addt'l complaints, except as documented Respiratory/Chest Respiratory/Chest: Reports systems reviewed and no addt'l complaints, except as documented Gastrointestinal Gastrointestinal: Reports systems reviewed and no addt'l complaints, except as documented Physical Exam Const alert, oriented x3 and no apparent distress HEENT Head and Scalp: atraumatic Resp normal respiratory effort GI soft to palpation and non-tender Bimanual Exam - Vag & Uterus: uterus non-tender Uterus Palpation: uterus fundus firm (below Umbilicus) Assessment & Plan (1) Vaginal delivery: COMMENT: SM IOL cholestasis 37 boy shellie (2) Post-op pain: PLAN: s/p PPD # 3 1. routine post delivery care 2. breast feeding- support given 3. rh positive 4. rubella immune
[2021-04-04 09:44] VITALS: BP 133/88; PULSE 96; RESP 16; TEMP 36.1; O2SAT 98
--- NOTE | 2021-04-04 10:42 | PCM.DC.SUM ---
Providers Date of Admission: 03/30/21 Primary Care Physician: Dr. Marlen Jeffries MD Reason For Visit: INDUCTION VAG DEL Diagnosis Discharge Diagnosis (1) Vaginal delivery: Status: Resolved Code(s): O80 - Encounter for full-term uncomplicated delivery (2) Post-op pain: Status: Acute Code(s): G89.18 - Other acute postprocedural pain Medications at Discharge Home Medications multivitamin no.47-iron fum 27 mg-folate no.1 1 mg-dha 300 mg capsule 1 cap PO DAILY 09/04/20 ursodiol 300 mg PO Q8H 03/30/21 oxycodone-acetaminophen [Percocet] 1 - 2 tab PO Q6H PRN 3 Days #10 tab 04/03/21 Hospital Course Operations cholecystecomy Summary of Care Provided Hospital Course: admitted for IOL sec cholestasis, then had . ppd1 developed severe RUQ pain, decision for lap jana ppd 2. dc home on ppd 3 Weight / BMI Weight Weight: 206 lb 6.4 oz Body Mass Index (BMI) 31.4 ABG / Lab / Microbiology Data Result Diagrams: 04/03/21 09:26 04/03/21 09:26 Microbiology: Microbiology 03/30/21 20:15 Nasal Secretion SARS-CoV-2 Antigen (Rapid) - Final Radiography Diagnostic Testing: Radiology Impression Cholangiogram 04/03/21 09:40 IMPRESSION: Unremarkable intraoperative cholangiogram. Electronically Signed: Will Mena MD at 13:35 EDT , Service support , D/C Instructions Discharge Diet: No restrictions Discharge Activity: May Not Drive (for 2 weeks or while taking narcotic pain medications.), May Shower and May Take a Tub Bath (in 7 days) May shower in (days): 0 May resume sexual activity in: 4-6 weeks Weight Bearing Status: Full weight bearing Call your doctor if your incision/area has: Continuous Slow Oozing, Sudden Increased Bleeding, Increased Pain/ Swelling, Increased Redness and Foul Smelling Discharge Call your doctor if you observe: Fever of 101 or Higher Suture Line Care: Avoid Pulling/Pushing and Avoid Pinching/Bending Cleanse incision/area with: Soap & Water Additional Dressing/Incision Instructions: Steri-Strips should fall off in 7 to 10 days of the do not fall if okay to remove after 10 days. Please Follow Up With: Migdalia Echols MD When: Call [phone] to make an appointment with your doctor in 6 weeks. If you had elevated blood pressure or 4th degree laceration, you will need to be seen in 2 weeks. Meaningful Use Info Meaningful Use Diagnoses (Choose all that apply): None applicable Discharge Plan Admission Admit Date/Time: 03/30/21 18:55 Primary Reason for Your Visit: vaginal delivery Attending Provider: Migdalia Echols Primary Care Provider: Marlen Jeffries Instructions Patient Instructions: After a Vaginal Discharge Orders/Prescriptions Prescriptions: New oxycodone-acetaminophen [Percocet] 5-325 mg tablet 1 - 2 tab PO Q6H PRN (Reason: pain) 3 Days Qty: 10 RF: 0 No Action PNV-DHA 27 mg iron-1 mg -300 mg capsule 1 cap PO DAILY RF: 0 ursodiol 300 mg capsule 300 mg PO Q8H RF: 0 Referrals / Follow Up: Marlen Jeffries MD [Primary Care Provider] - Disposition Disposition (needs filled in before D/C Order can be placed): Home, Self Care
== END 2021-04-04 11:10 | disposition home or self-care (01) | DRG 768 ==
PROVIDERS: Surgery; Admitting Provider Obstetrics & Gynecology; PCP Internal Medicine; Referring Provider Obstetrics & Gynecology; Visit Provider Obstetrics & Gynecology
PROC: 0FT44ZZ Resection of Gallbladder, Percutaneous Endoscopic Approach (ICD-10-PCS; CPT 47610; principal; 2021-04-03 09:20)
DX: O26.62 Liver and biliary tract disorders in childbirth (principal); Z37.0 Single live birth; K83.1 Obstruction of bile duct; K81.0 Acute cholecystitis; O70.0 First degree perineal laceration during delivery; O69.81X0 Labor and delivery complicated by cord around neck, without compression, not applicable or unspecified; Z88.0 Allergy status to penicillin; Z3A.34 34 weeks gestation of pregnancy
CPT/HCPCS: 59025; 59050; 74181; 74300; 76000; 80048; 80053; 80076; 85025; 86850; 86900; 86901; 87426; 88304; 99218; J7030; J7120; A4216; G0378; J0744; J2405

== ENCOUNTER → 2021-05-15 | Outpatient (CLI) | payer BC, SELFPAY ==
[2021-05-21 16:36] LABS: HPV Reflexed? NOT INDICATED
== END | disposition home or self-care (01) ==
LOC: LABSPEC 15:38
PROVIDERS: PCP Internal Medicine; Referring Provider Obstetrics & Gynecology; Visit Provider Obstetrics & Gynecology
DX: Z12.4 Encounter for screening for malignant neoplasm of cervix (principal); R30.0 Dysuria
CPT/HCPCS: 87086; 87088; 88175; G0145

== ENCOUNTER → 2022-08-17 | Outpatient (CLI) | payer OTHER, SELFPAY ==
[2022-08-20 06:08] LABS: Chlamydia By Nucleic Acid AMP Negative (Negative)
[2022-08-20 13:06] LABS: Gonococcus By Nucleic Acid AMP Negative (Negative)
== END | disposition home or self-care (01) ==
PROVIDERS: PCP Internal Medicine; Visit Provider Obstetrics & Gynecology
DX: O09.90 Supervision of high risk pregnancy, unspecified, unspecified trimester (principal)
CPT/HCPCS: 87491; 87591

== ENCOUNTER → 2022-08-24 | Outpatient (CLI) | payer OTHER, SELFPAY ==
[2022-08-24 13:45] LABS: Glucose Challenge Gest 1H 50g 106 mg/dL (70-140)
[2022-08-24 13:48] LABS: NATERA MAILED SPECIMEN
== END | disposition home or self-care (01) ==
LOC: LAB 12:34
PROVIDERS: PCP Internal Medicine; Visit Provider Obstetrics & Gynecology
DX: Z34.81 Encounter for supervision of other normal pregnancy, first trimester (principal)
CPT/HCPCS: 36415; 82950

== ENCOUNTER → 2022-09-15 | Outpatient (CLI) | payer OTHER, SELFPAY ==
[2022-09-15 11:30] LABS: Absolute Lymphocyte Count 1.89 X10^3/uL (0.83-4.51); Absolute Neutrophil Count 5.8 X10^3/uL (2.0-7.7); Basophil# 0.06 X10^3/uL; Basophil% 0.7 % (0-1); Eosinophil# 0.15 X10^3/uL; Eosinophils% 1.8 % (0-5); Hematocrit 40.5 % (37-47); Hemoglobin 13.6 g/dL (12.0-15.0); Lymphocyte # 1.89 X10^3/ul (0.83-4.51); Lymphocyte % 22.1 % (19-41); Mean Corp Hgb Conc 33.6 g/dL (32-36); Mean Corpuscular Hgb 29.1 pg (27.0-32.0); Mean Corpuscular Volume 86.7 fL (81-99); Mean Platelet Vol. 9.6 fl (6.2-12.0); Monocyte# 0.56 X10^3/uL; Monocyte% 6.6 % (0-10); NRBC Flagged by Analyzer 0 % (0-5); Neutrophil # 5.84 X10^3/uL (2.7-7.7); Neutrophil % 68.3 % (47-70); Platelet Count 252 K/mm3 (150-450); RBC Distribution Width CV 13.2 % (11.6-14.6); RBC Distribution Width SD 41.4 fl (35.1-43.9); Red Blood Count 4.67 M/mm3 (4.2-5.4); White Blood Count 8.5 K/mm3 (4.4-11.0)
[2022-09-15 12:46] LABS: HIV - WCH Non-Reactive (Nonreactive); Hepatitis B Surface Antigen Non-Reactive (Nonreactive); Hepatitis C Antibody Non-Reactive (Nonreactive); Rubella IgG Reactive (Nonreactive); Syphilis Antibodies Non-reactive
== END | disposition home or self-care (01) ==
PROVIDERS: PCP Internal Medicine; Referring Provider Nurse Practitioner Women's Health; Visit Provider Nurse Practitioner Women's Health
DX: O09.90 Supervision of high risk pregnancy, unspecified, unspecified trimester (principal); Z3A.13 13 weeks gestation of pregnancy
CPT/HCPCS: 36415; 85025; 86703; 86762; 86780; 86803; 86850; 86900; 86901; 87086; 87088; 87340

== ENCOUNTER → 2022-11-04 | Outpatient (CLI) | payer OTHER, SELFPAY ==
--- NOTE | 2022-11-04 14:47 | US_ITS ---
STUDY: SECOND AND THIRD TRIMESTER OBSTETRICAL ULTRASOUND REASON FOR EXAM: Female, 27 years old anatomy -- 18-20 weeks LMP: June 12, 2022. TECHNIQUE: Transabdominal and Transvaginal TECHNICAL QUALITY: Adequate. PRIOR ULTRASOUND: None. FINDINGS: There is a single intrauterine fetus. The fetus is in a cephalic presentation. There is demonstrated cardiac activity with a heart rate of 150 bpm. There is a normal amniotic fluid volume. The largest amniotic fluid pocket measures 3.7 cm x 3.3 cm. The amniotic fluid index (HOMER) is within normal limits. The placenta is anterior in location and is not low lying. There are Grade 0 placental changes. The cervix measures 4.8 cm in length. The adnexal regions are not visualized. BIOMETRY: BPD: 4.91 cm: 20 weeks, 6 days HC: 18.52 cm: 20 weeks, 6 days AC: 15.58 cm: 20 weeks, 5 days FL: 3.55 cm: 21 weeks, 1 days CI: 76.6% FL/BPD: 72.2% FL/HC: FL/AC: 22.8% HC/AC: 1.19 age by current US: 20 weeks, 6 days. CHERYL by current US: March 18, 2023. Estimated weight: 389 grams, +/- 58 grams, 58 %. Age by LMP: 20 weeks, 5 days. CHERYL by LMP: March 19, 2023. ANATOMY: Gender: Female Cranium: Normal lateral ventricles. Normal choroid plexus. Normal cerebellum. Normal cisterna magna. Normal face, nose and lips. Chest: Normal 4-chamber heart. Abdomen/Pelvis: Normal diaphragm. Normal stomach. Normal abdominal wall. Normal cord insertion. Normal 3 vessel cord. Normal kidneys. Normal bladder. Spine: Normal cervical spine. Normal thoracic spine. Normal lumbar spine. Normal sacrum. Extremities: Normal bilateral upper extremities. Normal bilateral lower extremities. US/OB Anatomy Scan IMPRESSION: Single live intrauterine gestation with a mean gestational age of 20 weeks and 6 days. Electronically Signed: Will Mena MD at 15:07 EDT ,
== END | disposition home or self-care (01) ==
LOC: OPUS 14:46
PROVIDERS: PCP Internal Medicine; Referring Provider Nurse Practitioner Women's Health; Visit Provider Nurse Practitioner Women's Health
DX: Z34.90 Encounter for supervision of normal pregnancy, unspecified, unspecified trimester (principal); Z3A.00 Weeks of gestation of pregnancy not specified
CPT/HCPCS: 76805; 76817

== ENCOUNTER → 2022-12-28 | Outpatient (CLI) | payer OTHER, SELFPAY ==
[2022-12-28 09:59] LABS: Absolute Lymphocyte Count 1.65 X10^3/uL (0.83-4.51); Absolute Neutrophil Count 6.2 X10^3/uL (2.0-7.7); Basophil# 0.06 X10^3/uL; Basophil% 0.7 % (0-1); Eosinophil# 0.18 X10^3/uL; Hematocrit 35.5 % (37-47); Hemoglobin 11.6 g/dL (12.0-15.0); Lymphocyte # 1.65 X10^3/ul (0.83-4.51); Lymphocyte % 18.8 % (19-41); Mean Corp Hgb Conc 32.7 g/dL (32-36); Mean Corpuscular Hgb 28.6 pg (27.0-32.0); Mean Corpuscular Volume 87.4 fL (81-99); Mean Platelet Vol. 10.1 fl (6.2-12.0); Monocyte# 0.65 X10^3/uL; Monocyte% 7.4 % (0-10); NRBC Flagged by Analyzer 0 % (0-5); Neutrophil # 6.17 X10^3/uL (2.7-7.7); Neutrophil % 70.2 % (47-70); Platelet Count 262 K/mm3 (150-450); RBC Distribution Width CV 12.5 % (11.6-14.6); RBC Distribution Width SD 40.2 fl (35.1-43.9); Red Blood Count 4.06 M/mm3 (4.2-5.4); White Blood Count 8.8 K/mm3 (4.4-11.0)
[2022-12-28 10:40] LABS: T4 Free Direct 0.73 ng/dL (0.76-1.46); Thyroid Stim Hormone (TSH) 1.31 uIU/mL (0.358-3.74)
[2022-12-28 10:41] LABS: ALB/GLOB Ratio 0.6 RATIO (0.9-2.4); AST(SGOT) 12 U/L (15-37); Alanine Aminotransfer ALT/SGPT 14 U/L (13-56); Albumin, Serum 2.4 g/dL (3.2-5.0); Alkaline Phosphatase 107 U/L (45-117); Anion Gap 4 (5-15); BUN 5 mg/dL (7-18); BUN/Creat Ratio 7.5 RATIO (10-20); Calcium,Total 8.1 mg/dL (8.5-10.1); Chloride 108 mmol/L (98-107); Creatinine, Serum 0.67 mg/dL (0.55-1.02); EST Glomerular Filtration Rate 113 mL/min (>60); Est Glom Filt Rate - Afr Amer 137 mL/min (>60); Globulin 4.2 g/dL (2.2-4.2); Glucose 166 mg/dL (74-106); Glucose Challenge Gest 1H 50g 166 mg/dL (70-140); Potassium 3.5 mmol/L (3.5-5.1); Protein, Total 6.6 g/dL (6.4-8.2); Sodium Level 134 mmol/L (136-145)
[2022-12-28 11:02] LABS: HIV - WCH Non-Reactive (Nonreactive); Syphilis Antibodies Non-reactive
[2022-12-29 04:07] LABS: Thyroid Peroxidase AB 11 IU/mL (0-34)
== END | disposition home or self-care (01) ==
PROVIDERS: Registered Nurse; PCP Internal Medicine; Referring Provider Obstetrics & Gynecology; Visit Provider Obstetrics & Gynecology
DX: O09.90 Supervision of high risk pregnancy, unspecified, unspecified trimester (principal); Z13.1 Encounter for screening for diabetes mellitus; Z83.49 Family history of other endocrine, nutritional and metabolic diseases; Z87.59 Personal history of other complications of pregnancy, childbirth and the puerperium; Z87.19 Personal history of other diseases of the digestive system
CPT/HCPCS: 36415; 80053; 82950; 84439; 84443; 85025; 86376; 86703; 86780

== ENCOUNTER → 2023-01-01 | Outpatient (CLI) | payer OTHER, SELFPAY ==
[2023-01-01 09:47] LABS: Glucose GTT-Gestation. Fasting 99 mg/dL (<105)
[2023-01-01 10:30] LABS: Glucose GTT-Gestational 1 Hr 159 mg/dL (<190)
[2023-01-01 11:49] LABS: Glucose GTT-Gestational 2 Hr 109 mg/dL (<165)
[2023-01-01 12:59] LABS: Glucose GTT-Gestational 3 Hr 120 L (<145)
== END | disposition home or self-care (01) ==
LOC: LAB 08:44
PROVIDERS: PCP Internal Medicine; Referring Provider Nurse Practitioner Women's Health; Visit Provider Nurse Practitioner Women's Health
DX: Z13.1 Encounter for screening for diabetes mellitus (principal)
CPT/HCPCS: 36415; 82951; 82952

== ENCOUNTER → 2023-02-19 | Outpatient (CLI) | payer OTHER, SELFPAY | END | disposition home or self-care (01) | LOC: LABSPEC 11:48 | PROVIDERS: PCP Internal Medicine; Referring Provider Obstetrics & Gynecology; Visit Provider Obstetrics & Gynecology | DX: O09.90 Supervision of high risk pregnancy, unspecified, unspecified trimester (principal); Z3A.00 Weeks of gestation of pregnancy not specified | CPT/HCPCS: 87077; 87081; 87186 ==

== ENCOUNTER 2023-03-06 18:29 | Outpatient (CLI) | payer OTHER, SELFPAY ==
[2023-03-06] VITALS (7 sets, daily range): PULSE 164–188; O2SAT 97–99; BMI 35.5
--- NOTE | 2023-03-06 18:39 | EKG12_ITS ---
Test Reason : TACHYCARDIA Blood Pressure : / mmHG Vent. Rate : 175 BPM Atrial Rate : 000 BPM P-R Int : 000 ms QRS Dur : 076 ms QT Int : 256 ms P-R-T Axes : 000 023 022 degrees QTc Int : 436 ms Critical Test Result: High HR Supraventricular tachycardia Nonspecific ST abnormality Abnormal ECG Confirmed by REMINGTON LOPEZ, RENEE ([id number]), photograph editor TERENCE BURROUGHS ([id number]) on 03/09/2023 7:45:03 AM Referred By: Confirmed By:RENEE MACEDO MD
[2023-03-06 19:09] LABS: Absolute Lymphocyte Count 1.97 X10^3/uL (0.83-4.51); Absolute Neutrophil Count 6.2 X10^3/uL (2.0-7.7); Basophil# 0.06 X10^3/uL; Basophil% 0.6 % (0-1); Eosinophil# 0.13 X10^3/uL; Eosinophils% 1.4 % (0-5); Hematocrit 34.7 % (37-47); Lymphocyte # 1.97 X10^3/ul (0.83-4.51); Lymphocyte % 21.2 % (19-41); Mean Corp Hgb Conc 31.7 g/dL (32-36); Mean Corpuscular Hgb 25.3 pg (27.0-32.0); Monocyte# 0.84 X10^3/uL; NRBC Flagged by Analyzer 0 % (0-5); Neutrophil # 6.16 X10^3/uL (2.7-7.7); Neutrophil % 66.4 % (47-70); Platelet Count 281 K/mm3 (150-450); RBC Distribution Width CV 13.2 % (11.6-14.6); RBC Distribution Width SD 37.8 fl (35.1-43.9); Red Blood Count 4.34 M/mm3 (4.2-5.4); White Blood Count 9.3 K/mm3 (4.4-11.0)
[2023-03-06 19:13] LABS: Color, Urine Yellow (Yellow); Glucose, Dipstick Normal (Normal); Ketone-Dipstick Negative (Negative); Leukocyte Esterase-Dipstick 100 /ul (Negative); Nitrite-Dipstick Negative (Negative); Occult Blood-Urine Negative /ul (Negative); Protein-Dipstick 15 mg/dl (Negative); Urine Bilirubin Dipstick Negative (Negative); Urine Clarity Clear (Clear); Urine Urobilinogen Normal (Normal); Urine pH 6.5 (5.0 - 8.0)
[2023-03-06 19:31] LABS: ALB/GLOB Ratio 0.6 RATIO (0.9-2.4); AST(SGOT) 17 U/L (15-37); Alanine Aminotransfer ALT/SGPT 16 U/L (13-56); Albumin, Serum 2.5 g/dL (3.2-5.0); Alkaline Phosphatase 173 U/L (45-117); Anion Gap 10 (5-15); BUN 5 mg/dL (7-18); BUN/Creat Ratio 8.5 RATIO (10-20); Calcium,Total 8.7 mg/dL (8.5-10.1); Chloride 110 mmol/L (98-107); Creatinine, Serum 0.59 mg/dL (0.55-1.02); EST Glomerular Filtration Rate 130 mL/min (>60); Est Glom Filt Rate - Afr Amer 157 mL/min (>60); Estimated Creatinine Clearance 144.48 ml/min; Globulin 4.5 g/dL (2.2-4.2); Glucose 109 mg/dL (74-106); Potassium 3.6 mmol/L (3.5-5.1); Sodium Level 140 mmol/L (136-145); Troponin-I HS 6 pg/mL (3.0-54.0)
--- NOTE | 2023-03-06 19:31 | OB.TRI.HP_ITS ---
HPI - General HPI Narrative SOPHIA GOLDMAN, is a 28 F who presents with acute tachycardia started this afternoon feeling chest tightness and elevated heart rate, some shortness of breath. upon arrival heart rate was in the 170s to 180s and pulse ox 99% ekg shows SVT. she denies any vaginal bleeding or abnormal discharge, denies any c affeine intake, drugs, medications or stressful events. she has no cardiac history of history of blood clots. Maternal Data Information CHERYL Calculator Estimated Delivery Date Method Current WG Current Estimate 03/19/23 LMP (Certain) 38w 1d Other Estimates 03/20/23 Ultrasound #1 38w 0d PFSH PFSH Medical History Cholestasis Dysuria Headache, migraine history of bone fractures History of tetanus, diphtheria, and acellular pertussis booster vaccination (Tdap) History of viral meningitis Hives Post-op pain Right upper quadrant pain Seasonal allergies Allergy/AdvReac Type Severity Reaction Status Date / Time Penicillins Allergy Mild hives Verified 03/06/23 18:39 Family History Father Thyroid cancer High cholesterol Grandfather Myocardial infarction, Onset Age: 50 Mother Thyroid disorder mega Surgical History History of cholecystectomy Social History adopted: No household members: significant other and children housing: house number of children: 1 current occupational status: employed pets and animals: Yes (litter box-) pets and animals: cat(s) and dog(s) history of recent travel: Yes ([facility]) out of state: Yes sexually active: No Smoking Status: Never smoker alcohol intake: current alcohol intake frequency: a few times a month Alcohol type: beer, wine and hard liquor substance use type: does not use well-balanced diet: daily or most days caffeine: Yes Type: coffee Number of servings: 2 what type of physical activity do you participate in: walking, bicycling and additional details: horse riding seatbelt use: always do you feel safe at home: Yes additional social history: -Jacques History 2 Elective abortions Hx Para 1 Spontaneous abortions Hx # Term Pregnancies 1 Ectopic pregnancies Hx # Pregnancies Multiple births # of living children 1 Past Pregnancies Del. Date Name GA/Weeks Outcome Route Bth Weight Gen Labor Lgth Anesthesia James Ardon Provider FOB 04/01/21 Slade 37 live - full term Male [facility] Kinza Delivery Date: 04/01/21 Last Updated by: Margaret Og IOL Cholestasis Visit Details Expected Delivery Route/Plan Labor Preferences- CB/BF classes: no labor support person: Jacques labor intervention preferences: [] pain management options preferred: epidural if needed cut cord/dad catch: yes : yes PP control planned: discussed discussed possible routes of delivery and associated risks: [] special requests: [] Plans Covid status: discussed Flu vaccine:discussed Tdap vaccine:given Rhogam: na LARC form signed: yes Problem list reviewed and updated with the most current plan of care details and appropriate orders placed. Relevant counseling for the gestational age provided. Continue routine care and follow up unless otherwise noted in visit notes/problem list details OB Flowsheet Initial Weight: Not Recorded Date -?-?-?-?-?-?-?-?-?-?-?-?- EGA Weight BP Urine Prot -?-?-?-?-?-?-?-?-?-?-?-?- Glucose FHR FuHt Pres Dilation -?-?-?-?-?-?-?-?-?-?-?-?- Effaced St Visit Note 08/17/22 -?-?-?-?-?-?-?-?-?-?-?-?- 9w 3d 227 lb 6 oz 119/74 -?-?-?-?-?-?-?-?-?-?-?-?- 180 -?-?-?-?-?-?-?-?-?-?-?-?- SM- 2.4cm cons w ith LMP 09/15/22 -?-?-?-?-?-?-?-?-?-?-?-?- 13w 4d 224 lb 4 oz 103/69 Nega tive -?-?-?-?-?-?-?-?-?--?-?-?- Negative 160 -?-?-?-?-?-?-?-?-?-?-?-?- MH-No VB. Br bed side US:active IUP. Headache more bothersome, some nausea:Rx phenergan. 10/16/22 -?-?-?-?-?-?-?-?-?-?-?-?- 18w 0d 224 lb 6 oz 121/86 Nega tive -?-?-?-?-?-?-?-?-?-?-?-?- Negative 150 -?-?-?-?-?-?-?-?-?-?-?-?- SM- no vb lof no ctx 11/13/22 -?-?-?-?-?-?-?-?-?-?-?-?- 22w 0d 230 lb 6 oz 111/75 Nega tive -?-?-?-?-?-?-?-?-?-?-?-?- Negative 150 -?-?-?-?-?-?-?-?-?-?-?-?- LC- no lof/vb/ct x. +flutters father with thyroid cancer, desires tsh/t4.concerned with repeat ICP in this . no current symptoms 12/11/22 -?-?-?-?-?-?-?-?-?-?-?-?- 26w 0d 227 lb 8 oz 135/78 Nega tive -?-?-?-?-?-?-?-?-?-?-?-?- Negative 155 26 -?-?-?-?-?-?-?-?-?-?-?-?- SM- no vb lof go od fm no regular ctx having some itching- will order cholestasis labs 12/28/22 -?-?-?-?-?-?-?-?-?-?-?-?- 28w 3d 229 lb 3.2 oz 112/74 Ne gative -?-?-?-?-?-?-?-?-?-?-?-?- Negative 148 28 -?-?-?-?-?-?-?-?-?-?-?-?- MH-No VB, LOF. G ood FM. Still having off and on itching. 28 wk labs and bile acids et el today. Having upper right back/shoulder pain. Has chiropractor appt but not till end of December. Enc to try one in [place]. Larc 01/08/23 -?-?-?-?-?-?-?-?-?-?-?-?- 30w 0d 229 lb 2 oz 116/62 Nega tive -?-?-?-?-?-?-?-?-?-?-?-?- 144 29 -?-?-?-?-?-?-?-?-?-?-?-?- LC- no vb/ctx/lo f. good fm. less itching. bile acids negative. desires tdap at 32 weeks. repeat bile acids if itching remains/intensifies. 01/22/23 -?-?-?-?-?-?-?-?-?-?-?-?- 32w 0d 230 lb 6 oz 121/82 Nega tive -?-?-?-?-?-?-?-?-?-?-?-?- Negative 147 32 -?-?-?-?-?-?-?-?-?-?-?-?- JV- no lof, vagi nal bleeding, or dec fm. no increase in itching but will let us know if things start to picker tender helper. 02/05/23 -?-?-?-?-?-?-?-?-?-?--?-?- 34w 0d 230 lb 6 oz 125/67 Nega tive -?-?-?-?-?-?-?-?-?-?-?-?- Negative 145 34 -?-?-?-?-?-?-?-?-?-?-?-?- KW-No lof/vb/ctx . good fm. no itching or concerns today. TDAP today 02/19/23 -?-?-?-?-?-?-?-?-?-?-?-?- 36w 0d 233 lb 8 oz 111/75 Trac e -?-?-?-?-?-?-?-?-?-?-?-?- Negative 150 36 Cephalic 1 .5 -?-?-?-?-?-?-?-?-?-?-?-?- 0 SM- no v b lof good fm no reuglar ctx 02/26/23 -?-?-?-?-?-?-?-?-?-?-?-?- 37w 0d 232 lb 6 oz 128/80 Nega tive -?-?-?-?-?-?-?-?-?-?-?-?- Negative 155 37 Cephalic 1 .5 -?-?-?-?-?-?-?-?-?-?-?-?- 30 -3 LC- no vb/ ctx/lof. good fm. GBS positive. labor precautions provided. 03/05/23 -?-?-?-?-?-?-?-?-?-?-?-?- 38w 0d 234 lb 108/76 Negative -?-?-?-?-?-?-?-?-?-?-?-?- Negative 150 38 Cephalic 2 -?-?-?-?-?--?-?-?-?-?-?-?- 50 -2 KW-no vb/l of/regular ctx. good fm. labor precautions. Physical Exam Const alert, oriented x3 and no apparent distress HEENT Head and Scalp: normocephalic and atraumatic Eyes EOMs intact bilaterally Neck full ROM and no lymphadenopathy Chest inspection of chest normal Resp normal respiratory effort, no retractions, no use of accessory muscles and clear to auscultation bilaterally Cardio regular rhythm, S1 normal heart sound, S2 normal heart sound and no murmurs Rate: tachycardic GI GI Narrative: gravid, abdomen nontender, AGA NST FHR Rate Baby A Baseline: 140 Variability:: Moderate Accelerations:: 15 x 15 Decelerations:: None NST Reactive:: Yes FHR Category:: Category I Uterine Activity:: no regular Assessment & Plan (1) SVT (supraventricular tachycardia): PLAN: Plan status reassuring- will continue monitoring with nurse present, ekg, lab evaluation ordered, to ED for further evaluation, discussed with hospitalist and ED physician. Charges/Coding Procedures Urinary/Genital 52xxx-59xxx: 41689-68 non-stress test Interp Multi Select Codes Visit Charges Office Visit/Consults: 08682 OV L3 Est
--- NOTE | 2023-03-06 19:31 | OB.TRI.NOTE ---
HPI - General HPI Narrative SOPHIA GOLDMAN, is a 28 F who presents with acute tachycardia started this afternoon feeling chest tightness and elevated heart rate, some shortness of breath. upon arrival heart rate was in the 170s to 180s and pulse ox 99% ekg shows SVT. she denies any vaginal bleeding or abnormal discharge, denies any caffeine intake, drugs, medications or stressful events. she has no cardiac history of history of blood clots. Maternal Data Information CHERYL Calculator Estimated Delivery Date Method Current WG Current Estimate 03/19/23 LMP (Certain) 38w 1d Other Estimates 03/20/23 Ultrasound #1 38w 0d PFSH PFSH Medical History Cholestasis Dysuria Headache, migraine history of bone fractures History of tetanus, diphtheria, and acellular pertussis booster vaccination (Tdap) History of viral meningitis Hives Post-op pain Right upper quadrant pain Seasonal allergies Allergy/AdvReac Type Severity Reaction Status Date / Time Penicillins Allergy Mild hives Verified 03/06/23 18:39 Family History Father Thyroid cancer High cholesterol Grandfather Myocardial infarction, Onset Age: 50 Mother Thyroid disorder mega Surgical History History of cholecystectomy Social History adopted: No household members: significant other and children housing: house number of children: 1 current occupational status: employed pets and animals: Yes (litter box-) pets and animals: cat(s) and dog(s) history of recent travel: Yes ([facility]) out of state: Yes sexually active: No Smoking Status: Never smoker alcohol intake: current alcohol intake frequency: a few times a month Alcohol type: beer, wine and hard liquor substance use type: does not use well-balanced diet: daily or most days caffeine: Yes Type: coffee Number of servings: 2 what type of physical activity do you participate in: walking, bicycling and additional details: horse riding seatbelt use: always do you feel safe at home: Yes additional social history: -Jacques History 2 Elective abortions Hx Para 1 Spontaneous abortions Hx # Term Pregnancies 1 Ectopic pregnancies Hx # Pregnancies Multiple births # of living children 1 Past Pregnancies Del. Date Name GA/Weeks Outcome Route Bth Weight Infant Gen Labor Lgth Anesthesia James Wolfeatn Provider FOB 04/01/21 Slade 37 live - full term Male [facility] Kinza Delivery Date: 04/01/21 Last Updated by: Margaret Og IOL Cholestasis Visit Details Expected Delivery Route/Plan Labor Preferences- CB/BF classes: no labor support person: Jacques labor intervention preferences: [] pain management options preferred: epidural if needed cut cord/dad catch: yes : yes PP control planned: discussed discussed possible routes of delivery and associated risks: [] special requests: [] Plans Covid status: discussed Flu vaccine:discussed Tdap vaccine:given Rhogam: na LARC form signed: yes Problem list reviewed and updated with the most current plan of care details and appropriate orders placed. Relevant counseling for the gestational age provided. Continue routine care and follow up unless otherwise noted in visit notes/problem list details OB Flowsheet Initial Weight: Not Recorded Date <del>?</del> EGA Weight BP Urine Prot <del>?</del> Glucose FHR FuHt Pres Dilation <del>?</del> Effaced St Visit Note 08/17/22 <del>?</del> 9w 3d 227 lb 6 oz 119/74 <del>?</del> 180 <del>?</del> SM- 2.4cm cons with LMP 09/15/22 <del>?</del> 13w 4d 224 lb 4 oz 103/69 Negative <del>?</del> Negative 160 <del>?</del> MH-No VB. Br bedside US:active IUP. Headache more bothersome, some nausea:Rx phenergan. 10/16/22 <del>?</del> 18w 0d 224 lb 6 oz 121/86 Negative <del>?</del> Negative 150 <del>?</del> SM- no vb lof no ctx 11/13/22 <del>?</del> 22w 0d 230 lb 6 oz 111/75 Negative <del>?</del> Negative 150 <del>?</del> LC- no lof/vb/ctx. +flutters father with thyroid cancer, desires tsh/t4.concerned with repeat ICP in this . no current symptoms 12/11/22 <del>?</del> 26w 0d 227 lb 8 oz 135/78 Negative <del>?</del> Negative 155 26 <del>?</del> SM- no vb lof good fm no regular ctx having some itching- will order cholestasis labs 12/28/22 <del>?</del> 28w 3d 229 lb 3.2 oz 112/74 Negative <del>?</del> Negative 148 28 <del>?</del> MH-No VB, LOF. Good FM. Still having off and on itching. 28 wk labs and bile acids et el today. Having upper right back/shoulder pain. Has chiropractor appt but not till end of December. Enc to try one in [place]. Larc 01/08/23 <del>?</del> 30w 0d 229 lb 2 oz 116/62 Negative <del>?</del> 144 29 <del>?</del> LC- no vb/ctx/lof. good fm. less itching. bile acids negative. desires tdap at 32 weeks. repeat bile acids if itching remains/intensifies. 01/22/23 <del>?</del> 32w 0d 230 lb 6 oz 121/82 Negative <del>?</del> Negative 147 32 <del>?</del> JV- no lof, vaginal bleeding, or dec fm. no increase in itching but will let us know if things start to slat pickler. 02/05/23 <del>?</del> 34w 0d 230 lb 6 oz 125/67 Negative <del>?</del> Negative 145 34 <del>?</del> KW-No lof/vb/ctx. good fm. no itching or concerns today. TDAP today 02/19/23 <del>?</del> 36w 0d 233 lb 8 oz 111/75 Trace <del>?</del> Negative 150 36 Cephalic 1.5 <del>?</del> 0 SM- no vb lof good fm no reuglar ctx 02/26/23 <del>?</del> 37w 0d 232 lb 6 oz 128/80 Negative <del>?</del> Negative 155 37 Cephalic 1.5 <del>?</del> 30 -3 LC- no vb/ctx/lof. good fm. GBS positive. labor precautions provided. 03/05/23 <del>?</del> 38w 0d 234 lb 108/76 Negative <del>?</del> Negative 150 38 Cephalic 2 <del>?</del> 50 -2 KW-no vb/lof/regular ctx. good fm. labor precautions. Physical Exam Const alert, oriented x3 and no apparent distress HEENT Head and Scalp: normocephalic and atraumatic Eyes EOMs intact bilaterally Neck full ROM and no lymphadenopathy Chest inspection of chest normal Resp normal respiratory effort, no retractions, no use of accessory muscles and clear to auscultation bilaterally Cardio regular rhythm, S1 normal heart sound, S2 normal heart sound and no murmurs Rate: tachycardic GI GI Narrative: gravid, abdomen nontender, AGA NST FHR Rate Baby A Baseline: 140 Variability:: Moderate Accelerations:: 15 x 15 Decelerations:: None NST Reactive:: Yes FHR Category:: Category I Uterine Activity:: no regular Assessment & Plan (1) SVT (supraventricular tachycardia): PLAN: Plan status reassuring- will continue monitoring with nurse present, ekg, lab evaluation ordered, to ED for further evaluation, discussed with hospitalist and ED physician. Charges/Coding Procedures Urinary/Genital 52xxx-59xxx: 00111-29 non-stress test Interp Multi Select Codes Visit Charges Office Visit/Consults: 78245 OV L3 Est
[2023-03-06 19:34] LABS: Amphetamine Urine VISTA NEGATIVE (<1000 ng/mL); Barbiturate Urine VISTA NEGATIVE (< 200 ng/mL); Benzodiazepine Urine VISTA NEGATIVE (< 200 ng/mL); Cocaine Urine VISTA NEGATIVE (< 300 ng/mL); Ecstacy Urine VISTA NEGATIVE (< 500 ng/mL); Methadone Urine VISTA NEGATIVE (< 300 ng/mL); PCP Urine VISTA NEGATIVE (< 25 ng/mL); THC Urine VISTA NEGATIVE (< 50 ng/mL); Vista UDS pH Range 7
--- NOTE | 2023-03-06 22:24 | NURSING ---
late entry due to pt care completed a bedside evaluation of pt and ordered her to be discharged from and to be escorted to ER by RN for further Evaluation for tachycardia. Order received from for continuous EFM until pt is stable in the ER 1944 pt discharged from , transferred to ER via wheelchair by Jose MENDOZA and Omer MENDOZA
--- NOTE | 2023-03-17 15:48 | EKG12_ITS ---
Test Reason : RHYTHM CONVERSION Blood Pressure : / mmHG Vent. Rate : 118 BPM Atrial Rate : 118 BPM P-R Int : 154 ms QRS Dur : 094 ms QT Int : 326 ms P-R-T Axes : 034 012 017 degrees QTc Int : 456 ms Sinus tachycardia Otherwise normal ECG Confirmed by ABBEY LOPEZ, JOSE ([id number]), newspaper managing editor TERENCE BURROUGHS ([id number]) on 03/24/2023 2:27:47 PM Referred By: Confirmed By:PATRICIA POTTER MD
== END 2023-03-06 19:45 | disposition home or self-care (01) ==
LOC: WPOUT 18:32 → WP 18:33
PROVIDERS: Obstetrics & Gynecology; PCP Internal Medicine; Visit Provider Registered Nurse
DX: O99.413 Diseases of the circulatory system complicating pregnancy, third trimester (principal); I47.10 Supraventricular tachycardia, unspecified; Z3A.38 38 weeks gestation of pregnancy
CPT/HCPCS: 59025; 59050; 80053; 80307; 81002; 84484; 85025; 87086; 87088; 93005; 99221; G0378

== ENCOUNTER 2023-03-06 19:42 | Emergency (ER) | payer OTHER, SELFPAY ==
[2023-03-06 19:43] VITALS: BP 115/79; PULSE 130; RESP 15; TEMP 36.8; O2SAT 97; BMI 38.5
--- NOTE | 2023-03-06 19:53 | EDS_ITS ---
HPI History of Present Illness Chief Complaint: Chest Pain Narrative Narrative: Patient presents with SVT. She was seen in OB triage and she is 38 weeks , she was found to be in SVT and sent to the ED however by the time she got to the emergency department she had a spontaneous cardioversion. She is now in sinus rhythm. She has no further complaints. She is on a maternal- monitoring system per OB. [facility] Medical History Cholestasis Dysuria Headache, migraine history of bone fractures History of tetanus, diphtheria, and acellular pertussis booster vaccination (Tdap) History of viral meningitis Hives Post-op pain Right upper quadrant pain Seasonal allergies Home Medications metoprolol tartrate 25 mg tablet 25 mg PO BID #60 tabs 03/06/23 [Rx Last Taken Unknown] Allergy/AdvReac Type Severity Reaction Status Date / Time Penicillins Allergy Mild hives Verified 03/06/23 18:39 Family History Father Thyroid cancer High cholesterol Grandfather Myocardial infarction, Onset Age: 50 Mother Thyroid disorder mega Surgical History History of cholecystectomy Social History adopted: No household members: significant other and children housing: house number of children: 1 current occupational status: employed pets and animals: Yes (litter box-) pets and animals: cat(s) and dog(s) history of recent travel: Yes ([facility]) out of state: Yes sexually active: No Smoking Status: Never smoker alcohol intake: current alcohol intake frequency: a few times a month Alcohol type: beer, wine and hard liquor substance use type: does not use well-balanced diet: daily or most days caffeine: Yes Type: coffee Number of servings: 2 what type of physical activity do you participate in: walking, bicycling and additional details: horse riding seatbelt use: always do you feel safe at home: Yes additional social history: -Jacques ROS ROS ED ROS Narrative Past medical history: Reviewed Medications: Reviewed Social history: Noncontributory Review of systems: All systems negative except as indicated General: No fever Eyes: No visual changes ENT: No upper airway congestion, normal voice Neck: No neck pain Cardiovascular: No chest pain palpitations as in HPI Respiratory: No shortness of breath or cough Gastrointestinal: No abdominal pain, nausea vomiting or diarrhea, she has movement Genitourinary: No dysuria. No vaginal bleeding Musculoskeletal: Denies myalgias no difficulty with ambulation Skin: No rash Neurological: No memory loss, confusion or any focal weakness Psych: No recent behavioral changes EXAM Physical Exam Narrative Exam Narrative: Physical exam General: Patient appears somewhat apprehensive Head: Normocephalic, Atraumatic Eyes: Conjunctiva not pale ENT: Moist mucous membranes Neck: Supple, Nontender, No lymphadenopathy Cardiovascular: Regular rate and 100s without any murmur Respiratory: No distress, CTA bilaterally Abdomen: Soft, gravid without any tenderness Back: Nontender, Normal Inspection. Negative for: CVA tenderness Extremities: Nontender, No edema Skin: Normal color, No rash Neurological: Alert, Normal Strength, Normal Sensation Const Vital Signs: 03/06/23 19:43 03/06/23 19:45 Temperature 98.2 F Temperature Source Temporal Pulse Rate 130 H Respiratory Rate 15 Respiratory Effort Normal Non-Labored Respiratory Pattern Normal Blood Pressure 115/79 Blood Pressure Mean 91 Pulse Ox 97 Oxygen Delivery Method Room Air MDM MDM MDM Narrative Medical decision making narrative: Patient spontaneously converted. I am looking at the first EKG which was done in OB triage and this shows SVT. Now she is in sinus rhythm. She will be observed in the ED. She has normal blood work and troponins. I will place her on a low-dose beta-levy and refer to cardiology. Otherwise she has been monitored per OB and has normal heart rate and no dangerous patterns on heart rate. I discussed with OB and patient will be discharged. Discharge Plan Triage Chief Complaint: Chest Pain ED Provider: Toño Barragan Dx/Rx/DC Orders Clinical Impression: , SVT (supraventricular tachycardia) Instructions: Supraventricular Tachycardia Prescriptions: New metoprolol tartrate 25 mg tablet 25 mg PO BID Qty: 60 0RF Primary Care Provider: Marlen Jeffries Referrals: Cliff Gunderson MD [Med Staff - Active Staff] - 3-5 Days Marlen Jeffries MD [Primary Care Provider] - 3-5 Days Disposition Disposition: Home, Self Care
--- NOTE | 2023-03-06 20:00 | NURSING ---
Rn to escort pt to the ER per Dr. Echols's request. Pt to be placed on the monitor while pt in ER and until discharge. Pt was on the monitor from [id number]. [address] Echols, pt can come off the monitor due to Cat 1 strip and talking to the ER doctor about her POC. Pt feeling movement ( Rn saw movement). FHR baseline 135 with moderate variability and accels. NO decels noted. No contractions noted and pt denied feeling any.
[2023-03-06 20:21] VITALS: BP 112/75; PULSE 112; RESP 20; O2SAT 100
[2023-03-06] MEDS: Metoprolol Tartrate 25 MG Tablet PO (20:23)
== END 2023-03-06 20:39 | disposition home or self-care (01) ==
PROVIDERS: Emergency Provider Emergency Medicine; PCP Internal Medicine; Visit Provider Emergency Medicine
DX: O99.413 Diseases of the circulatory system complicating pregnancy, third trimester (principal); I47.10 Supraventricular tachycardia, unspecified; Z3A.38 38 weeks gestation of pregnancy
CPT/HCPCS: 93005; 99282

== ENCOUNTER 2023-03-15 13:20 | Outpatient (CLI) | payer OTHER, SELFPAY ==
[2023-03-15] VITALS (12 sets, daily range): BP systolic 102–130; BP diastolic 64–79; PULSE 83–105; TEMP 37.3–37.6; O2SAT 98–100
[2023-03-15 14:16] LABS: ROM Internal Control Test YES-OK TO RESULT pt. (Internal QC); ROM Patient Test Negative (Negative); Record Kit Lot#, ROM+ K1409
[2023-03-15 15:38] LABS: Absolute Lymphocyte Count 1.53 X10^3/uL (0.83-4.51); Absolute Neutrophil Count 3.7 X10^3/uL (2.0-7.7); Basophil# 0.05 X10^3/uL; Basophil% 0.9 % (0-1); Eosinophil# 0.09 X10^3/uL; Eosinophils% 1.5 % (0-5); Hematocrit 33.8 % (37-47); Hemoglobin 10.5 g/dL (12.0-15.0); Lymphocyte # 1.53 X10^3/ul (0.83-4.51); Lymphocyte % 26.1 % (19-41); Mean Corp Hgb Conc 31.1 g/dL (32-36); Mean Corpuscular Hgb 24.8 pg (27.0-32.0); Mean Corpuscular Volume 79.9 fL (81-99); Mean Platelet Vol. 10.2 fl (6.2-12.0); Monocyte# 0.49 X10^3/uL; Monocyte% 8.3 % (0-10); NRBC Flagged by Analyzer 0 % (0-5); Neutrophil # 3.65 X10^3/uL (2.7-7.7); Neutrophil % 62.2 % (47-70); Platelet Count 265 K/mm3 (150-450); RBC Distribution Width CV 13.9 % (11.6-14.6); RBC Distribution Width SD 39.4 fl (35.1-43.9); Red Blood Count 4.23 M/mm3 (4.2-5.4); White Blood Count 5.9 K/mm3 (4.4-11.0)
[2023-03-15] MEDS: Lactated Ringers 1,000 ML 999 ML IV (15:40)
--- NOTE | 2023-03-15 15:47 | OB.TRI.HP_ITS ---
HPI - General HPI Narrative SOPHIA GOLDMAN, is a 28 F who presents at 39.3 with questionable LOF. +FM. no vb or ctx. covid positive on wednesday. afebrile. Maternal Data Information CHERYL Calculator Estimated Delivery Date Method Current WG Current Estimate 03/19/23 LMP (Certain) 39w 3d Other Estimates 03/20/23 Ultrasound #1 39w 2d PFSH PFSH Medical History Cholestasis Dysuria Headache, migraine history of bone fractures History of tetanus, diphtheria, and acellular pertussis booster vaccination (Tdap) History of viral meningitis Hives Post-op pain Right upper quadrant pain Seasonal allergies Home Medications metoprolol tartrate 25 mg tablet 25 mg PO BID #60 tabs 03/06/23 [Rx Last Taken Unknown] Allergy/AdvReac Type Severity Reaction Status Date / Time Penicillins Allergy Mild hives Verified 03/10/23 11:44 Family History Father Thyroid cancer High cholesterol Grandfather Myocardial infarction, Onset Age: 50 Mother Thyroid disorder mega Surgical History History of cholecystectomy Social History adopted: No household members: significant other and children housing: house number of children: 1 current occupational status: employed pets and animals: Yes (litter box-) pets and animals: cat(s) and dog(s) history of recent travel: Yes ([facility]) out of state: Yes sexually active: No Smoking Status: Never smoker alcohol intake: current alcohol intake frequency: a few times a month Alcohol type: beer, wine and hard liquor substance use type: does not use well-balanced diet: daily or most days caffeine: Yes Type: coffee Number of servings: 2 what type of physical activity do you participate in: walking, bicycling and additional details: horse riding seatbelt use: always do you feel safe at home: Yes additional social history: -Jacques History 2 Elective abortions Hx Para 1 Spontaneous abortions Hx # Term Pregnancies 1 Ectopic pregnancies Hx # Pregnancies Multiple births # of living children 1 Past Pregnancies Del. Date Name GA/Weeks Outcome Route Bth Weight Gen Labor Lgth Anesthesia Del Rev[place] Provider FOB 04/01/21 [place] 37 live - full term Male [facility] Kinza Delivery Date: 04/01/21 Last Updated by: Margaret Og IOL Cholestasis Visit Details Expected Delivery Route/Plan Labor Preferences- CB/BF classes: no labor support person: Jacques labor intervention preferences: [] pain management options preferred: epidural if needed cut cord/dad catch: yes : yes PP control planned: discussed discussed possible routes of delivery and associated risks: [] special requests: [] Plans Covid status: discussed Flu vaccine:discussed Tdap vaccine:given Rhogam: na LARC form signed: yes Problem list reviewed and updated with the most current plan of care details and appropriate orders placed. Relevant counseling for the gestational age provided. Continue routine care and follow up unless otherwise noted in visit notes/problem list details OB Flowsheet Initial Weight: Not Recorded Date -?-?-?-?-?-?-?-?-?-?-?-?- EGA Weight BP Urine Prot -?-?-?-?-?-?-?-?-?-?-?-?- Glucose FHR FuHt Pres Dilation -?-?-?-?-?-?-?-?-?-?-?-?- Effaced St Visit Note 08/17/22 -?-?-?-?-?-?-?-?-?-?-?-?- 9w 3d 227 lb 6 oz 119/74 -?-?-?-?--?-?-?-?-?-?-?-?- 180 -?-?-?-?-?-?-?-?-?-?-?-?- SM- 2.4cm cons w ith LMP 09/15/22 -?-?-?-?-?-?-?-?-?-?-?-?- 13w 4d 224 lb 4 oz 103/69 Nega tive -?-?-?-?-?-?-?-?-?-?-?-?- Negative 160 -?-?-?-?-?-?-?-?-?-?-?-?- MH-No VB. Br bed side US:active IUP. Headache more bothersome, some nausea:Rx p henergan. 10/16/22 -?-?-?-?-?-?-?-?-?-?-?-?- 18w 0d 224 lb 6 oz 121/86 Nega tive -?-?-?-?-?-?-?-?-?-?-?-?- Negative 150 -?-?-?-?-?-?-?-?-?-?-?-?- SM- no vb lof no ctx 11/13/22 -?-?-?-?-?-?-?-?-?-?-?-?- 22w 0d 230 lb 6 oz 111/75 Nega tive -?-?-?-?-?-?-?-?-?-?-?-?- Negative 150 -?-?-?-?-?-?-?-?-?-?-?-?- LC- no lof/vb/ct x. +flutters father with thyroid cancer, desires tsh/t4.concerned with repeat ICP in this . no current symptoms 12/11/22 -?-?-?-?-?-?-?-?-?-?-?-?- 26w 0d 227 lb 8 oz 135/78 Nega tive -?-?-?-?-?-?-?-?-?-?-?-?- Negative 155 26 -?-?-?-?-?-?-?-?-?-?-?-?- - no vb lof go od fm no regular ctx having some itching- will order cholestasis labs 12/28/22 -?-?-?-?-?-?-?-?-?-?-?-?- 28w 3d 229 lb 3.2 oz 112/74 Ne gative -?--?-?-?-?-?-?-?-?-?-?-?- Negative 148 28 -?-?-?-?-?-?-?-?-?-?-?-?- -No VB, LOF. G ood FM. Still having off and on itching. 28 wk labs and bile acids et el today. Having upper right back/shoulder pain. Has chiropractor appt but not till end of December. Enc to try one in [place] 01/08/23 -?-?-?-?-?-?-?-?-?-?-?-?- 30w 0d 229 lb 2 oz 116/62 Nega tive -?-?-?-?-?-?-?-?-?-?-?-?- 144 29 -?-?-?-?-?-?-?-?-?-?-?-?- LC- no vb/ctx/lo f. good fm. less itching. bile acids negative. desires tdap at 32 weeks. repeat bile acids if itching remains/intensifies. 01/22/23 -?-?-?-?-?-?-?-?-?-?-?-?- 32w 0d 230 lb 6 oz 121/82 Nega tive -?-?-?-?-?-?-?-?-?-?-?-?- Negative 147 32 -?-?-?-?-?-?-?-?-?-?-?-?- JV- no lof, vagi nal bleeding, or dec fm. 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 02/05/23 -?-?-?-?-?-?-?-?-?-?-?-?- 34w 0d 230 lb 6 oz 125/67 Nega tive -?-?-?-?-?-?-?-?-?-?-?-?- Negative 145 34 -?-?-?-?-?-?-?-?-?-?-?-?- KW-No lof/vb/ctx . good fm. no itching or concerns today. TDAP today 02/19/23 -?-?-?-?-?-?-?-?-?-?-?-?- 36w 0d 233 lb 8 oz 111/75 Trac e -?-?-?-?-?-?-?-?-?-?-?-?- Negative 150 36 Cephalic 1 .5 -?-?-?-?-?-?-?-?-?-?-?-?- 0 SM- no v b lof good fm no reuglar ctx 02/26/23 -?-?-?-?-?-?-?-?-?-?-?-?- 37w 0d 232 lb 6 oz 128/80 Nega tive -?-?-?-?-?-?-?-?-?-?-?-?- Negative 155 37 Cephalic 1 .5 -?-?-?-?-?-?-?-?-?-?-?-?- 30 -3 LC- no vb/ ctx/lof. good fm. GBS positive. labor precautions provided. 03/05/23 -?-?-?-?-?-?-?-?-?-?-?-?- 38w 0d 234 lb 108/76 Negative -?-?-?-?-?-?-?-?-?-?-?-?- Negative 150 38 Cephalic 2 -?-?-?-?-?-?-?-?-?-?-?-?- 50 -2 KW-no vb/l of/regular ctx. good fm. labor precautions. 03/11/23 -?-?-?-?-?-?-?-?-?-?-?-?- 38w 6d 234 lb 128/88 -?-?-?-?-?-?-?-?-?-?-?-?- 140 39 Cephalic 2 -?-?-?-?-?-?-?-?-?-?-?-?- SM- no vb lof go od fm n oregular ctx NST FHR Rate Baby A Baseline: 130-150 Variability:: Moderate Accelerations:: 15 x 15 Decelerations:: None NST Reactive:: Yes FHR Category:: Category I Uterine Activity:: irregular Assessment & Plan (1) No leakage of amniotic fluid into vagina: COMMENT: no change in VE, ROM negative 03/15. d/c home with labor precautions. PLAN: Patient presents for triage evaluation secondary to questionable leaking of fluid. ROM negative. FHT: Moderate variability reactive no decelerations category I tracing. tachycardia- CBC and CMP obtained, s/p 1L LR bolus with recovery to baseline 135 with accelerations now cat [address] aWlton of stable FHT tracing. [place]: irregular Contractions Assessment and plan: Reactive NST, reassuring maternal and status patient discharged to home to follow-up in the office and as needed. See problem list details for additional plan information.
--- NOTE | 2023-03-15 15:47 | OB.TRI.NOTE ---
HPI - General HPI Narrative SOPHIA GOLDMAN, is a 28 F who presents at 39.3 with questionable LOF. +FM. no vb or ctx. covid positive on wednesday. afebrile. Maternal Data Information CHERYL Calculator Estimated Delivery Date Method Current WG Current Estimate 03/19/23 LMP (Certain) 39w 3d Other Estimates 03/20/23 Ultrasound #1 39w 2d PFSH PFSH Medical History Cholestasis Dysuria Headache, migraine history of bone fractures History of tetanus, diphtheria, and acellular pertussis booster vaccination (Tdap) History of viral meningitis Hives Post-op pain Right upper quadrant pain Seasonal allergies Home Medications metoprolol tartrate 25 mg tablet 25 mg PO BID #60 tabs 03/06/23 [Rx Last Taken Unknown] Allergy/AdvReac Type Severity Reaction Status Date / Time Penicillins Allergy Mild hives Verified 03/10/23 11:44 Family History Father Thyroid cancer High cholesterol Grandfather Myocardial infarction, Onset Age: 50 Mother Thyroid disorder mega Surgical History History of cholecystectomy Social History adopted: No household members: significant other and children housing: house number of children: 1 current occupational status: employed pets and animals: Yes (litter box-) pets and animals: cat(s) and dog(s) history of recent travel: Yes ([facility]) out of state: Yes sexually active: No Smoking Status: Never smoker alcohol intake: current alcohol intake frequency: a few times a month Alcohol type: beer, wine and hard liquor substance use type: does not use well-balanced diet: daily or most days caffeine: Yes Type: coffee Number of servings: 2 what type of physical activity do you participate in: walking, bicycling and additional details: horse riding seatbelt use: always do you feel safe at home: Yes additional social history: -Jacques History 2 Elective abortions Hx Para 1 Spontaneous abortions Hx # Term Pregnancies 1 Ectopic pregnancies Hx # Pregnancies Multiple births # of living children 1 Past Pregnancies Del. Date Name GA/Weeks Outcome Route Bth Weight Gen Labor Lgth Anesthesia Del Locatn Provider FOB 04/01/21 [place] 37 live - full term Male [facility] Kinza Delivery Date: 04/01/21 Last Updated by: Margaret Og IOL Cholestasis Visit Details Expected Delivery Route/Plan Labor Preferences- CB/BF classes: no labor support person: Jacques labor intervention preferences: [] pain management options preferred: epidural if needed cut cord/dad catch: yes : yes PP control planned: discussed discussed possible routes of delivery and associated risks: [] special requests: [] Plans Covid status: discussed Flu vaccine:discussed Tdap vaccine:given Rhogam: na LARC form signed: yes Problem list reviewed and updated with the most current plan of care details and appropriate orders placed. Relevant counseling for the gestational age provided. Continue routine care and follow up unless otherwise noted in visit notes/problem list details OB Flowsheet Initial Weight: Not Recorded Date <del>?</del> EGA Weight BP Urine Prot <del>?</del> Glucose FHR FuHt Pres Dilation <del>?</del> Effaced St Visit Note 08/17/22 <del>?</del> 9w 3d 227 lb 6 oz 119/74 <del>?</del> 180 <del>?</del> SM- 2.4cm cons with LMP 09/15/22 <del>?</del> 13w 4d 224 lb 4 oz 103/69 Negative <del>?</del> Negative 160 <del>?</del> MH-No VB. Br bedside US:active IUP. Headache more bothersome, some nausea:Rx phenergan. 10/16/22 <del>?</del> 18w 0d 224 lb 6 oz 121/86 Negative <del>?</del> Negative 150 <del>?</del> SM- no vb lof no ctx 11/13/22 <del>?</del> 22w 0d 230 lb 6 oz 111/75 Negative <del>?</del> Negative 150 <del>?</del> LC- no lof/vb/ctx. +flutters father with thyroid cancer, desires tsh/t4.concerned with repeat ICP in this . no current symptoms 12/11/22 <del>?</del> 26w 0d 227 lb 8 oz 135/78 Negative <del>?</del> Negative 155 26 <del>?</del> SM- no vb lof good fm no regular ctx having some itching- will order cholestasis labs 12/28/22 <del>?</del> 28w 3d 229 lb 3.2 oz 112/74 Negative <del>?</del> Negative 148 28 <del>?</del> MH-No VB, LOF. Good FM. Still having off and on itching. 28 wk labs and bile acids et el today. Having upper right back/shoulder pain. Has chiropractor appt but not till end of December. Enc to try one in [place]. Larc 01/08/23 <del>?</del> 30w 0d 229 lb 2 oz 116/62 Negative <del>?</del> 144 29 <del>?</del> LC- no vb/ctx/lof. good fm. less itching. bile acids negative. desires tdap at 32 weeks. repeat bile acids if itching remains/intensifies. 01/22/23 <del>?</del> 32w 0d 230 lb 6 oz 121/82 Negative <del>?</del> Negative 147 32 <del>?</del> JV- no lof, vaginal bleeding, or dec fm. no increase in itching but will let us know if things start to picker/puller. 02/05/23 <del>?</del> 34w 0d 230 lb 6 oz 125/67 Negative <del>?</del> Negative 145 34 <del>?</del> KW-No lof/vb/ctx. good fm. no itching or concerns today. TDAP today 02/19/23 <del>?</del> 36w 0d 233 lb 8 oz 111/75 Trace <del>?</del> Negative 150 36 Cephalic 1.5 <del>?</del> 0 SM- no vb lof good fm no reuglar ctx 02/26/23 <del>?</del> 37w 0d 232 lb 6 oz 128/80 Negative <del>?</del> Negative 155 37 Cephalic 1.5 <del>?</del> 30 -3 LC- no vb/ctx/lof. good fm. GBS positive. labor precautions provided. 03/05/23 <del>?</del> 38w 0d 234 lb 108/76 Negative <del>?</del> Negative 150 38 Cephalic 2 <del>?</del> 50 -2 KW-no vb/lof/regular ctx. good fm. labor precautions. 03/11/23 <del>?</del> 38w 6d 234 lb 128/88 <del>?</del> 140 39 Cephalic 2 <del>?</del> SM- no vb lof good fm n oregular ctx NST FHR Rate Baby A Baseline: 130-150 Variability:: Moderate Accelerations:: 15 x 15 Decelerations:: None NST Reactive:: Yes FHR Category:: Category I Uterine Activity:: irregular Assessment & Plan (1) No leakage of amniotic fluid into vagina: COMMENT: no change in VE, ROM negative 03/15. d/c home with labor precautions. PLAN: Patient presents for triage evaluation secondary to questionable leaking of fluid. ROM negative. FHT: Moderate variability reactive no decelerations category I tracing. tachycardia- CBC and CMP obtained, s/p 1L LR bolus with recovery to baseline 135 with accelerations now cat [address] Walton of stable FHT tracing. [place]: irregular Contractions Assessment and plan: Reactive NST, reassuring maternal and status patient discharged to home to follow-up in the office and as needed. See problem list details for additional plan information.
[2023-03-15 16:06] LABS: ALB/GLOB Ratio 0.6 RATIO (0.9-2.4); AST(SGOT) 20 U/L (15-37); Alanine Aminotransfer ALT/SGPT 16 U/L (13-56); Albumin, Serum 2.3 g/dL (3.2-5.0); Alkaline Phosphatase 186 U/L (45-117); Anion Gap 7 (5-15); BUN 4 mg/dL (7-18); BUN/Creat Ratio 6.6 RATIO (10-20); Calcium,Total 8.7 mg/dL (8.5-10.1); Chloride 110 mmol/L (98-107); Creatinine, Serum 0.61 mg/dL (0.55-1.02); EST Glomerular Filtration Rate 126 mL/min (>60); Est Glom Filt Rate - Afr Amer 152 mL/min (>60); Globulin 4.1 g/dL (2.2-4.2); Glucose 85 mg/dL (74-106); Protein, Total 6.4 g/dL (6.4-8.2); Sodium Level 139 mmol/L (136-145)
--- NOTE | 2023-03-15 16:31 | US_ITS ---
EXAM: US BIOPHYSICAL PROFILE WITHOUT NON-STRESS TESTING CLINICAL INDICATION: r/o oligohydramnios TECHNIQUE: Real-time ultrasound of the maternal pelvis for biophysical profile evaluation with image documentation. COMPARISON: 11/04/2022 FINDINGS: BREATHING MOVEMENTS: Present. Score 2/2. GROSS BODY MOVEMENTS: Present. Score 2/2. TONE: Present. Score 2/2. QUALITATIVE AMNIOTIC FLUID VOLUME: Amniotic fluid volume is 13 cm with largest fluid pocket of 6.24 cm. HEART RATE: heart rate: 140 bpm. PRESENTATION: Cephalic presentation. PLACENTA: Anterior placenta. US/Biophysical Prof W/O Non Stres IMPRESSION: Normal biophysical profile, 8 out of 8. Normal amniotic fluid volume. Electronically Signed: Abdias Gamboa DO at 20:54 EDT ,
== END 2023-03-15 18:49 | disposition home or self-care (01) ==
LOC: WPOUT 13:25 → WP 13:25
PROVIDERS: Obstetrics & Gynecology; PCP Internal Medicine; Referring Provider Registered Nurse; Visit Provider Registered Nurse
DX: Z03.89 Encounter for observation for other suspected diseases and conditions ruled out (principal); O98.513 Other viral diseases complicating pregnancy, third trimester; U07.1 COVID-19; Z3A.39 39 weeks gestation of pregnancy
CPT/HCPCS: 96360; 36415; 59025; 59050; 76819; 80053; 84112; 85025; 99221; J7120; G0378

== ENCOUNTER 2023-03-17 05:00 | Inpatient (IN) | payer OTHER, SELFPAY ==
[2023-03-16 21:50] VITALS: BMI 36.5
[2023-03-16 21:51] VITALS: BP 126/83; PULSE 96; TEMP 36.9
[2023-03-17] VITALS (50 sets, daily range): BP systolic 95–180; BP diastolic 52–107; PULSE 77–181; RESP 16; TEMP 36.4–37.9; O2SAT 98–100
--- NOTE | 2023-03-17 00:22 | OB.TRI.PN_ITS ---
Progress Notes Date of Service: 03/16/23 Progress Note: Patient presents for triage evaluation secondary to uterine contractions FHT: 140 Moderate variability reactive no decelerations category I tracing [place]: irregular Contractions Assessment and plan: no change in SVE, Reactive NST, reassuring maternal and fe maurice status patient discharged to home to follow-up in office on wednesday. See problem list details for additional plan information. Charges/Coding Multi Select Codes Urinary/Genital Urinary/Genital CPT Codes: 20779-69 non-stress test Interp Assessment & Plan (1) Positive GBS test: COMMENT: Plan antibiotic in labor. allergic to PCN- head to toe hives. plan vancomycin (2) Abnormal glucose level: COMMENT: nl 3 HR GTT (3) Back pain affecting : QUALIFIERS: Trimester: third trimester Qualified Code(s): O99.891 - Other specified diseases and conditions complicating ; M54.9 - Dorsalgia, unspecified (4) History of cholestasis during : COMMENT: may desire bile acids/lft in 3rd trimester. co itching off an on- ordered labs, 01/01 nl bile acid (5) Obesity affecting : QUALIFIERS: Trimester: third trimester Obesity type affecting : unspecified obesity Qualified Code(s): O99.213 - Obesity complicating , third trimester COMMENT: 1 TM GCT-nl, encouraged healthy weight gain (6) Headache, migraine: QUALIFIERS: Migraine type: without aura Status migrainosus presence: without status migrainosus Intractability: not intractable Qualified Code(s): G43.009 - Migraine without aura, not intractable, without status migrainosus COMMENT: taking tylenol, encouraged magnesium supplement. Rx phenergan sent. (7) Supervision of high risk , antepartum: COMMENT: PRR CHERYL 03/19/23, girl, jose antonio? PC [place], Spouse Jacques (8) : QUALIFIERS: Weeks of gestation: 39 weeks Qualified Code(s): Z3A.39 - 39 weeks gestation of COMMENT: NIPT low risk, declines carrier screen. declined ntd screen, nl anatomy (9) Uterine contractions: COMMENT: no change in SVE, DC home
[2023-03-17] MEDS: Lactated Ringers 1,000 ML 200 ML IV ×2 (05:15→09:34)
[2023-03-17] MEDS: LACTATED RINGERS 500 ML 999 ML IV ×2 (05:15→08:10)
[2023-03-17 05:42] LABS: Absolute Lymphocyte Count 2.38 X10^3/uL (0.83-4.51); Absolute Neutrophil Count 7.4 X10^3/uL (2.0-7.7); Basophil# 0.07 X10^3/uL; Basophil% 0.6 % (0-1); Eosinophil# 0.13 X10^3/uL; Eosinophils% 1.2 % (0-5); Hematocrit 34.5 % (37-47); Lymphocyte # 2.38 X10^3/ul (0.83-4.51); Lymphocyte % 21.8 % (19-41); Mean Corp Hgb Conc 31.9 g/dL (32-36); Mean Corpuscular Hgb 25.1 pg (27.0-32.0); Mean Corpuscular Volume 78.8 fL (81-99); Mean Platelet Vol. 9.8 fl (6.2-12.0); Monocyte# 0.82 X10^3/uL; Monocyte% 7.5 % (0-10); NRBC Flagged by Analyzer 0 % (0-5); Platelet Count 288 K/mm3 (150-450); RBC Distribution Width CV 13.9 % (11.6-14.6); RBC Distribution Width SD 39.1 fl (35.1-43.9); Red Blood Count 4.38 M/mm3 (4.2-5.4); White Blood Count 10.9 K/mm3 (4.4-11.0)
[2023-03-17] MEDS: Clindamycin 900 MG/50 ML BAG 75 MG IV (05:51)
--- NOTE | 2023-03-17 08:09 | HP.PCM.OB_ITS ---
HPI - General General Date of Admission: 03/17/23 HPI Narrative SOPHIA GOLDMAN, is a 28 y/o @ 39 weeks 5 days who presents to L&D with painful contractions. She was admitted several hours ago and has already received her epidural and starting to feel some relief. She has active COVID but is asking for a repeat covid test now. Her nurse just checked her and called her 5 cm and 90% effaced. Her membranes are intact and she declines rupture at this time. She states that she was up all night and wants to get some relief from the epidural before she has to start pushing. Maternal Data Information CHERYL Calculator Estimated Delivery Date Method Current WG Current Estimate 03/19/23 LMP (Certain) 39w 5d Other Estimates 03/20/23 Ultrasound #1 39w 4d PFSH PFS Medical History Cholestasis Dysuria Headache, migraine history of bone fractures History of tetanus, diphtheria, and acellular pertussis booster vaccination (Tdap) History of viral meningitis Hives Post-op pain Right upper quadrant pain Seasonal allergies Home Medications metoprolol tartrate 25 mg tablet 25 mg PO BID #60 tabs 03/06/23 [Rx Last Taken Unknown] Allergy/AdvReac Type Severity Reaction Status Date / Time Penicillins Allergy Mild hives Verified 03/10/23 11:44 Family History Father Thyroid cancer High cholesterol Grandfather Myocardial infarction, Onset Age: 50 Mother Thyroid disorder mega Surgical History History of cholecystectomy Social History adopted: No household members: significant other and children housing: house number of children: 1 current occupational status: employed pets and animals: Yes (litter box-) pets and animals: cat(s) and dog(s) history of recent travel: Yes ([facility]) out of state: Yes sexually active: No Smoking Status: Never smoker alcohol intake: current alcohol intake frequency: a few times a month Alcohol type: beer, wine and hard liquor substance use type: does not use well-balanced diet: daily or most days caffeine: Yes Type: coffee Number of servings: 2 what type of physical activity do you participate in: walking, bicycling and additional details: horse riding seatbelt use: always do you feel safe at home: Yes additional social history: -Jacques History 2 Elective abortions Hx Para 1 Spontaneous abortions Hx # Term Pregnancies 1 Ectopic pregnancies Hx # Pregnancies Multiple births # of living children 1 Past Pregnancies Del. Date Name GA/Weeks Outcome Route Bth Weight Gen Labor Lgth Anesthesia Del Locatn Provider FOB 04/01/21 [place] 37 live - full term Male [facility] Delivery Date: 04/01/21 Last Updated by: Margaret Og IOL Cholestasis Visit Details Expected Delivery Route/Plan Labor Preferences- CB/BF classes: no labor support person: Jacques labor intervention preferences: [] pain management options preferred: epidural if needed cut cord/dad catch: yes : yes PP control planned: discussed discussed possible routes of delivery and associated risks: [] special requests: [] Plans Covid status: discussed Flu vaccine:discussed Tdap vaccine:given Rhogam: na LARC form signed: yes Problem list reviewed and updated with the most current plan of care details and appropriate orders placed. Relevant counseling for the gestational age provided. Continue routine care and follow up unless otherwise noted in visit notes/problem list details OB Flowsheet Initial Weight: Not Recorded Date -?-?-?-?-?-?-?-?-?-?-?-?- EGA Weight BP Urine Prot -?-?-?-?-?-?-?-?-?-?-?-?- Glucose FHR FuHt Pres Dilation -?-?-?-?-?-?-?-?-?-?-?-?- Effaced St Visit Note 08/17/22 -?-?-?-?-?-?-?-?-?-?--?-?- 9w 3d 227 lb 6 oz 119/74 -?-?-?-?-?-?-?-?-?-?-?-?- 180 -?-?-?-?-?-?-?-?-?-?-?-?- SM- 2.4cm cons w ith LMP 09/15/22 -?-?-?-?-?-?-?-?-?-?-?-?- 13w 4d 224 lb 4 oz 103/69 Nega tive -?-?-?-?-?-?-?-?-?-?-?-?- Negative 160 -?-?-?-?-?-?-?-?-?-?-?-?- MH-No VB. Br bed side US:active IUP. Headache more bothersome, some nausea:Rx phenergan. 10/16/22 -?-?-?-?-?-?-?-?-?-?-?-?- 18w 0d 224 lb 6 oz 121/86 Nega tive -?-?-?-?-?-?-?-?-?-?-?-?- Negative 150 -?-?-?-?-?-?-?-?-?-?-?-?- SM- no vb lof no ctx 11/13/22 -?-?-?-?-?-?-?-?-?-?-?-?- 22w 0d 230 lb 6 oz 111/75 Nega tive -?-?-?-?-?-?-?-?-?-?-?-?- Negative 150 -?-?-?-?-?-?-?-?-?-?-?-?- LC- no lof/vb/ct x. +flutters father with thyroid cancer, desires tsh/t4.concerned with repeat ICP in this . no current symptoms 12/11/22 -?-?-?-?-?-?-?-?-?-?-?-?- 26w 0d 227 lb 8 oz 135/78 Nega tive -?-?-?-?-?-?-?-?-?-?-?-?- Negative 155 26 -?-?-?-?-?-?-?-?-?-?-?-?- SM- no vb lof go od fm no regular ctx having some itching- will order cholestasis labs 12/28/22 -?-?-?-?-?-?-?-?-?-?-?-?- 28w 3d 229 lb 3.2 oz 112/74 Ne gative -?-?-?-?-?-?-?-?-?-?-?-?- Negative 148 28 -?-?-?-?-?-?-?-?-?-?-?-?- MH-No VB, LOF. G ood FM. Still having off and on itching. 28 wk labs and bile acids et el today. Having upper right back/shoulder pain. Has chiropractor appt but not till end of December. Enc to [facility] [place] -?-?-?-?-?-?-?-?-?-?-?-?- 30w 0d 229 lb 2 oz 116/62 Nega tive -?-?-?-?-?-?-?-?-?-?-?-?- 144 29 -?-?-?-?-?-?-?-?-?-?-?-?- LC- no vb/ctx/lo f. good fm. less itching. bile acids negative. desires tdap at 32 weeks. repeat bile acids if itching remains/intensifies. 01/22/23 -?-?-?-?-?-?-?-?-?-?-?-?- 32w 0d 230 lb 6 oz 121/82 Nega tive -?-?-?-?-?-?-?-?-?-?-?-?- Negative 147 32 -?-?-?-?-?-?-?-?-?-?-?-?- JV- no lof, vagi nal bleeding, or dec fm. 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 02/05/23 -?-?-?-?-?-?-?-?-?-?-?-?- 34w 0d 230 lb 6 oz 125/67 Nega tive -?-?-?-?-?-?-?-?-?-?-?-?- Negative 145 34 -?-?-?-?-?-?-?-?-?-?-?-?- KW-No lof/vb/ctx . good fm. no itching or concerns today. TDAP today 02/19/23 -?-?-?-?-?-?-?-?-?-?-?-?- 36w 0d 233 lb 8 oz 111/75 Trac e -?-?-?-?-?-?-?-?-?-?-?-?- Negative 150 36 Cephalic 1 .5 -?-?-?-?-?-?-?-?-?-?-?-?- 0 SM- no v b lof good fm no reuglar ctx 02/26/23 -?-?-?-?-?-?-?-?-?-?-?-?- 37w 0d 232 lb 6 oz 128/80 Nega tive -?-?-?-?-?-?-?-?-?-?-?-?- Negative 155 37 Cephalic 1 .5 -?-?-?-?--?-?-?-?-?-?-?-?- 30 -3 LC- no vb/ ctx/lof. good fm. GBS positive. labor precautions provided. 03/05/23 -?-?-?-?-?-?-?-?-?-?-?-?- 38w 0d 234 lb 108/76 Negative -?-?-?-?-?-?-?-?-?-?-?-?- Negative 150 38 Cephalic 2 -?-?-?-?-?-?-?-?-?-?-?-?- 50 -2 KW-no vb/l of/regular ctx. good fm. labor precautions. 03/11/23 -?-?-?-?-?-?-?-?-?-?-?-?- 38w 6d 234 lb 128/88 -?-?-?-?-?-?-?-?-?-?-?-?- 140 39 Cephalic 2 -?-?-?-?-?-?-?-?-?-?-?-?- SM- no vb lof go od fm n oregular ctx ROS Constitutional Constitutional: Denies change in weight, fatigue, fever(s), headache(s), poor appetite or weakness Eyes Eyes: Denies blurry vision, change in vision, seeing flashes or spots in vision ENT HEENT: Denies dizziness, headache(s), loss taste/smell or sore throat Cardiovascular Cardiovascular: Denies chest pain, dizziness, dyspnea, irregular heart rhythm, leg edema, palpitations, rapid heart rate or vomiting Respiratory/Chest Respiratory/Chest: Denies chest tightness, cough, dyspnea or breast pain Gastrointestinal Gastrointestinal: Denies abdominal pain, anorexia, constipation, cramping, diarrhea, hemorrhoids, vomiting or weight changes Genitourinary Genitourinary: Denies dysuria, flank pain, genital lesions, genital pain, urinary frequency or urinary urgency Musculoskeletal Musculoskeletal: Denies back pain, difficulty walking, joint pain, limited range of motion, muscle cramps or numbness Integumentary Integumentary: Denies lesions or unusual bruising Neurologic Neurologic: Denies abnormal movements, abnormal speech, dizziness, numbness, seizure-like activity or syncope Psychiatric Psychiatric: Denies anxiety, behavioral changes, change in appetite, change in libido, cognitive impairment, confusion, depression, difficulty concentrating, hallucinations or suicidal thoughts Endocrine Endocrinology: Denies excessive sweating, polydipsia or polyuria Hematologic/Lymphatic Hematologic/Lymphatic: Denies easy bleeding, easy bruising or lymphadenopathy Allergic/Immunologic Allergic/Immunologic: Denies itchy eyes, lip swelling, seasonal rhinorrhea, rhinitis, throat swelling, tongue swelling, eczemia, wheezing or asthma Vital Signs Vital Signs Vital Signs: 03/16/23 21:51 03/16/23 21:51 03/16/23 21:51 Temperature Temperature Source Temporal Pulse Rate 96 Blood Pressure 126/83 H BP Systolic 126 BP Diastolic 83 Pulse Ox 03/16/23 21:51 03/17/23 05:06 03/17/23 05:06 Temperature 98.4 F Temperature Source Pulse Rate 85 Blood Pressure BP Systolic BP Diastolic Pulse Ox 100 03/17/23 05:24 03/17/23 05:24 03/17/23 05:29 Temperature Temperature Source Pulse Rate 89 77 Blood Pressure BP Systolic BP Diastolic Pulse Ox 99 03/17/23 05:29 03/17/23 05:34 03/17/23 05:34 Temperature Temperature Source Pulse Rate 102 H Blood Pressure BP Systolic BP Diastolic Pulse Ox 100 100 03/17/23 05:39 03/17/23 05:39 03/17/23 05:44 Temperature Temperature Source Pulse Rate 93 94 Blood Pressure BP Systolic BP Diastolic Pulse Ox 99 03/17/23 05:44 03/17/23 05:49 03/17/23 05:49 Temperature Temperature Source Pulse Rate 95 Blood Pressure BP Systolic BP Diastolic Pulse Ox 100 100 03/17/23 05:54 03/17/23 05:54 03/17/23 05:59 Temperature Temperature Source Pulse Rate 82 88 Blood Pressure BP Systolic BP Diastolic Pulse Ox 100 03/17/23 05:59 03/17/23 06:04 03/17/23 06:04 Temperature Temperature Source Pulse Rate 83 Blood Pressure BP Systolic BP Diastolic Pulse Ox 100 99 03/17/23 06:24 03/17/23 06:24 03/17/23 06:24 Temperature Temperature Source Pulse Rate 86 Blood Pressure 148/81 H BP Systolic 148 BP Diastolic 81 Pulse Ox 99 03/17/23 06:24 03/17/23 06:29 03/17/23 06:29 Temperature Temperature Source Pulse Rate 86 82 Blood Pressure BP Systolic BP Diastolic Pulse Ox 99 03/17/23 06:30 03/17/23 06:30 03/17/23 06:34 Temperature Temperature Source Pulse Rate 103 H Blood Pressure 136/80 H 145/74 H BP Systolic 136 145 BP Diastolic 80 74 Pulse Ox 03/17/23 06:34 03/17/23 06:34 03/17/23 06:39 Temperature Temperature Source Pulse Rate 96 Blood Pressure 134/77 H BP Systolic 134 BP Diastolic 77 Pulse Ox 99 03/17/23 06:39 03/17/23 06:39 03/17/23 06:44 Temperature Temperature Source Pulse Rate 90 Blood Pressure 136/82 H BP Systolic 136 BP Diastolic 82 Pulse Ox 98 03/17/23 06:44 03/17/23 06:44 03/17/23 06:50 Temperature Temperature Source Pulse Rate 92 Blood Pressure 180/93 H BP Systolic 180 BP Diastolic 93 Pulse Ox 99 03/17/23 06:50 03/17/23 06:49 03/17/23 06:51 Temperature Temperature Source Pulse Rate 97 Blood Pressure 138/77 H BP Systolic 138 BP Diastolic 77 Pulse Ox 100 03/17/23 06:51 03/17/23 06:55 03/17/23 06:55 Temperature Temperature Source Pulse Rate 93 92 Blood Pressure 144/75 H BP Systolic 144 BP Diastolic 75 Pulse Ox 03/17/23 07:06 03/17/23 07:06 03/17/23 07:11 Temperature Temperature Source Pulse Rate 83 Blood Pressure 165/107 H 142/75 H BP Systolic 165 142 BP Diastolic 107 75 Pulse Ox 03/17/23 07:11 03/17/23 07:20 03/17/23 07:20 Temperature 98.2 F Temperature Source Temporal Pulse Rate 86 Blood Pressure BP Systolic BP Diastolic Pulse Ox 03/17/23 07:22 03/17/23 07:22 03/17/23 07:27 Temperature Temperature Source Pulse Rate 97 Blood Pressure 147/88 H BP Systolic 147 BP Diastolic 88 Pulse Ox 98 03/17/23 07:27 03/17/23 07:42 03/17/23 07:42 Temperature Temperature Source Pulse Rate 90 88 Blood Pressure 133/87 H BP Systolic 133 BP Diastolic 87 Pulse Ox 03/17/23 07:57 03/17/23 07:57 Temperature Temperature Source Pulse Rate 86 Blood Pressure 95/54 L BP Systolic 95 BP Diastolic 54 Pulse Ox Weight Weight: 240 lb 6 oz Body Mass Index (BMI) 36.5 Physical Exam Const alert, oriented x3, no apparent distress and healthy appearing General Appearance: cooperative; Negative for anxious HEENT normocephalic Face and Sinus: normal facial exam Eyes EOMs intact bilaterally and no scleral icterus General Eye: normal appearance of both eyes Neck full ROM and supple Lymph Lymphatic: no lymphadenopathy noted Chest Chest: abnormal inspection of the chest Resp normal respiratory effort Effort and Inspection: able to speak in complete sentences Cardio regular rate GI soft to palpation and non-tender Inspection: gravid Palpation: soft; Negative for tender external exam normal Back/Spine no CVA tenderness Extremity normal to inspection, full ROM and no clubbing, cyanosis or edema General Extremity: Negative for calf tenderness or edema Skin Lesions: no lesions Rashes: no rashes Psych mental status grossly normal Labs Labs Labs: Blood Type O POSITIVE Antibody Screen NEGATIVE Hct 34.5 % (37-47) L Hgb 11.0 g/dL (12.0-15.0) L Obstetrics Ultrasound Syphilis Total Ab Non-reactive Rubella IgG Antibody Reactive (Nonreactive) Hep Bs Antigen Non-Reactive (Nonreactive) Hepatitis C Antibody Non-Reactive (Nonreactive) Hepatitis C Ab (EIA) <0.1 s/co ratio (0.0-0.9) Chlamydia DNA (JAKE) Negative (Negative) N.gonorrhoeae DNA (JAKE) Negative (Negative) HIV 1&2 Antibody Non-Reactive (Nonreactive) Glucose 1 Hr 50 gm 166 mg/dL (70-140) H Gest Glucose Tolerance MG/DL Rhogam given: No Miscellaneous Test Assessment & Plan (1) Uterine contractions: COMMENT: no change in SVE, DC home (2) SVT (supraventricular tachycardia): (3) Positive GBS test: COMMENT: Plan antibiotic in labor. allergic to PCN- head to toe hives. plan vancomycin (4) Abnormal glucose level: COMMENT: nl 3 HR GTT (5) Back pain affecting : QUALIFIERS: Trimester: third trimester Qualified Code(s): O99.891 - Other specified diseases and conditions complicating ; M54.9 - Dorsalgia, unspecified (6) History of cholestasis during : COMMENT: may desire bile acids/lft in 3rd trimester. co itching off an on- ordered labs, 01/01 nl bile acid (7) Obesity affecting : QUALIFIERS: Trimester: third trimester Obesity type affecting : unspecified obesity Qualified Code(s): O99.213 - Obesity complicating , third trimester COMMENT: 1 TM GCT-nl, encouraged healthy weight gain (8) Headache, migraine: QUALIFIERS: Migraine type: without aura Status migrainosus presence: without status migrainosus Intractability: not intractable Qualified Code(s): G43.009 - Migraine without aura, not intractable, without status migrainosus COMMENT: taking tylenol, encouraged magnesium supplement. Rx phenergan sent. (9) Supervision of high risk , antepartum: COMMENT: PRR CHERYL 03/19/23, girl, jose antonio? PC [place], Spouse Jacques PLAN: Plan Patient presents IAL, plan expectant management for , pitocin/AROM PRN if needed. Pain management: plans epidural. GBS positive plan IV PCN. Management of any complications: none I have reviewed the [facility] and made any clinically relevant updates.
[2023-03-17 08:26] LABS: Syphilis Antibodies Non-reactive
[2023-03-17] MEDS: fentaNYL-bupivacaine (epidural) 100 ML BAG EPIDURAL ×2 (08:36→10:53)
[2023-03-17] MEDS: Oxytocin 15 Units/NS 250ml 15 UNITS/250 ML IV.SOLN 2 UNITS IV (09:19)
[2023-03-17] MEDS: Oxytocin 15 Units/NS 250ml 15 UNITS/250 ML IV.SOLN 83 UNITS IV (12:40)
--- NOTE | 2023-03-17 13:59 | EX.PCM.OBRPT ---
Assessment & Plan (1) SVT (supraventricular tachycardia): (2) Positive GBS test: COMMENT: Plan antibiotic in labor. allergic to PCN- head to toe hives. plan vancomycin (3) History of cholestasis during : COMMENT: may desire bile acids/lft in 3rd trimester. co itching off an on- ordered labs, 01/01 nl bile acid (4) Headache, migraine: QUALIFIERS: Migraine type: without aura Status migrainosus presence: without status migrainosus Intractability: not intractable Qualified Code(s): G43.009 - Migraine without aura, not intractable, without status migrainosus COMMENT: taking tylenol, encouraged magnesium supplement. Rx phenergan sent. (5) Supervision of high risk , antepartum: COMMENT: PRR CHERYL 03/19/23, girl, jose antonio? PC [place], Spouse Jacques (6) : QUALIFIERS: Weeks of gestation: 39 weeks Qualified Code(s): Z3A.39 - 39 weeks gestation of COMMENT: NIPT low risk, declines carrier screen. declined ntd screen, nl anatomy Maternal Data Information CHERYL Calculator Estimated Delivery Date Method Current WG Current Estimate 03/19/23 LMP (Certain) 39w 5d Other Estimates 03/20/23 Ultrasound #1 39w 4d Final CHERYL: 03/17/23 Final CHERYL Source: LMP Gestational age: 39 weeks 5 days Doctor Who Attended Delivery: Desmond Mijares Vaginal Delivery Operative Information Date of Procedure: 03/17/23 Type of Anesthesia: Epidural Estimated Blood Loss: 100cc Time of Delivery: 12:37 Findings Description of Procedure: Patient began pushing and delivered the head in the ERINN presentation. The head was delivered atraumatically . The anterior and posterior shoulders delivered without complication followed by the rest of the infant and the was placed on the maternal abdomen. Delayed cord clamping was employed for approximately 60 seconds. Cord was clamped and cut and gentle traction was applied to the cord and the placenta delivered spontaneously immediately following it was noted to be intact with three-vessel cord. The perineum and vagina were inspected and noted to have a left labial laceration and a small 1st degree perineal laceration. both were repaired with a 3-0 vicryl suture. EBL was 100 cc. Patient and infant tolerated delivery well. Presentation: Vertex Amniotic Membrane Rupture Type: Spontaneous Amniotic Fluid Description: Thick meconium Placental Delivery Description: Spontaneous Placenta Disposition: [facility] Cord Vessel Description: 3 Vessels Cord Entanglement: None A Gender: Female (1 minute): 8 (5 minute): 9 Delayed Cord Clamping: Yes Post Vaginal Delivery Medications Given After Delivery: IV Pitocin Episiotomy Description: None Laceration: Periurethral Extnsion/lac and 1st degree Multi Select Codes Urinary/Genital Urinary/Genital CPT Codes: 62060 Vaginal Delivery [facility]
--- NOTE | 2023-03-17 14:02 | DCINST_ITS ---
Discharge Instructions Diet Discharge Diet: No restrictions Activity Discharge Activity: Return to Normal Activity, May Not Drive (while taking narcotic pain medications.) and May Shower May resume sexual activity in: 4-6 weeks Dressing / Incision Call your doctor if your incision/area has: Continuous Slow Oozing, Sudden Increased Bleeding, Increased Pain/ Swelling, Increased Redness and Foul Smelling Discharge Follow Up Care Please Follow Up With: Lucinda Walton, DO When: Call [phone] to make an appointment with your doctor in 6 weeks. If you had elevated blood pressure or 4th degree laceration, you will need to be seen in 2 weeks. Test Results: Test results from this visit will be discussed in further detail at your follow- up appointment, if applicable. Discharge Plan Admission Admit Date/Time: 03/17/23 05:00 Attending Provider: Lucinda Walton Primary Care Provider: Marlen Jeffries Instructions Patient Instructions: ED False Labor, OB Triage: Return to Hospital or Notify Physician if you Experience: Discharge Orders/Prescriptions Prescriptions: No Action metoprolol tartrate 25 mg tablet 25 mg PO BID Qty: 60 0RF Referrals / Follow Up: Marlen Jeffries MD [Primary Care Provider] -
[2023-03-17] MEDS: Ibuprofen 600 MG Tablet PO ×2 (14:28→21:25)
[2023-03-17] MEDS: Acetaminophen 500 MG Tablet 1000 MG PO (18:56)
[2023-03-17] MEDS: 0.9% Saline Lock 10 ML Syringe IV (21:25)
[2023-03-18] VITALS (11 sets, daily range): BP systolic 98–133; BP diastolic 58–89; PULSE 73–99; RESP 14–18; TEMP 36.4–37.4; O2SAT 98–99
[2023-03-18] MEDS: Acetaminophen 500 MG Tablet 1000 MG PO ×3 (00:31→17:49)
[2023-03-18] MEDS: Ibuprofen 600 MG Tablet PO ×3 (05:27→21:11)
--- NOTE | 2023-03-18 07:25 | PCM.PN.OB ---
Subjective Subjective Patient doing well without complaints. Tolerating PO. Ambulating and voiding without difficulty. feeding well. Denies chest pain, shortness of breath, calf pain/swelling, fevers, chills, lightheadedness. Objective Data Objective Data Vital Signs: Vital Signs Temp Pulse Resp BP Pulse Ox O2 Del Method 97.6 F L 90 16 112/70 99 Room Air 03/18/23 03:15 03/18/23 03:15 03/18/23 03:15 03/18/23 03:15 03/17/23 18:16 03/18/23 03:15 Oxygen Delivery Method Room Air Weight: 240 lb 6 oz Body Mass Index (BMI) 36.5 Intake & Output: Intake and Output for Last 24 Hours 03/16/23 03/17/23 03/18/23 23:59 23:59 23:59 Intake Total 3033.33 / 3033.33 Output Total 1550 / 1550 Balance 1483.33 / 1483.33 Lab / Micro Data 03/17/23 05:25 Labs: Laboratory Results - last 24 hr 03/17/23 05:25: Syphilis Total Ab Non-reactive Micro: Microbiology 03/17/23 08:20 Nasal Secretion SARS-CoV-2 Antigen (Rapid) - Final ROS Constitutional Constitutional: Reports systems reviewed and no addt'l complaints, except as documented Cardiovascular Cardiovascular: Reports systems reviewed and no addt'l complaints, except as documented Respiratory/Chest Respiratory/Chest: Reports systems reviewed and no addt'l complaints, except as documented Gastrointestinal Gastrointestinal: Reports systems reviewed and no addt'l complaints, except as documented Physical Exam Const alert, oriented x3 and no apparent distress HEENT Head and Scalp: atraumatic Resp normal respiratory effort GI soft to palpation and non-tender Bimanual Exam - Vag & Uterus: uterus non-tender Uterus Palpation: uterus fundus firm (below Umbilicus) Assessment & Plan (1) Vaginal delivery: PLAN: Plan s/p PPD # 1 1. routine post delivery care 2. breast feeding- support given 3. rh positive 4. rubella immune
[2023-03-18] MEDS: Senna/Docusate Sodium 1 Tablet PO (21:11)
[2023-03-19 02:15] VITALS: BP 97/50; PULSE 83; RESP 20; TEMP 36.8
[2023-03-19] MEDS: Ibuprofen 600 MG Tablet PO (05:23)
[2023-03-19 08:00] VITALS: BP 125/79; PULSE 86; RESP 16; TEMP 36.6
--- NOTE | 2023-03-19 08:51 | DS.PCM_ITS ---
Providers Date of Admission: 03/17/23 Primary Care Physician: Dr. Marlen Jeffries MD Reason For Visit: VAGINAL DELIVERY Diagnosis Discharge Diagnosis (1) Vaginal delivery: Status: Resolved Code(s): O80 - Encounter for full-term uncomplicated delivery Plan Patient presents IAL, plan expectant management for , pitocin/AROM PRN if needed. Pain management: plans epidural. GBS positive plan IV PCN. Management of any complications: none I have reviewed the [facility] and made any clinically relevant updates. Medications at Discharge Home Medications metoprolol tartrate 25 mg tablet 25 mg PO BID #60 tabs 03/06/23 Hospital Course Operations None Summary of Care Provided Minutes Spent on Discharge: 10 Hospital Course: The patient was admitted to labor and delivery on 03/16/23 for loss of fluid and delivered her baby on 03/17/2023. She recovered without complications on 03/18 and by 03/19 was ready for discharge. Physical Exam Const alert, oriented x3 and no apparent distress General Appearance: cooperative and comfortable Resp normal respiratory effort Cardio regular rate GI normal to inspection, nondistended, normoactive bowel sounds GI Narrative: uterus is firm below umbilicus Palpation: soft Back/Spine no CVA tenderness and thoraco-lumbar ROM normal Extremity normal to inspection, no clubbing, cyanosis or edema, no calf tenderness and no pedal edema Psych mental status grossly normal, thought process normal, cooperative, affect normal, speech normal, activity/motor behavior normal, denies homicidal ideation and denies suicidal ideation Weight / BMI Weight Weight: 240 lb 6 oz Body Mass Index (BMI) 36.5 ABG / Lab / Microbiology Data 03/17/23 05:25 Microbiology: Microbiology 03/17/23 08:20 Nasal Secretion SARS-CoV-2 Antigen (Rapid) - Final D/C Instructions Discharge Diet: No restrictions May resume sexual activity in: 4-6 weeks Call your doctor if your incision/area has: Continuous Slow Oozing, Sudden Increased Bleeding, Increased Pain/ Swelling, Increased Redness and Foul Smelling Discharge Please Follow Up With: Lucinda Walton DO When: Call [phone] to make an appointment with your doctor in 6 weeks. If you had elevated blood pressure or 4th degree laceration, you will need to be seen in 2 weeks. Meaningful Use Info Meaningful Use Diagnoses (Choose all that apply): None applicable Discharge Plan Admission Admit Date/Time: 03/17/23 05:00 Primary Reason for Your Visit: vaginal delivery Attending Provider: Lucinda Walton Primary Care Provider: Marlen Jeffries Instructions Patient Instructions: ED False Labor, OB Triage: Return to Hospital or Notify Physician if you Experience: Discharge Orders/Prescriptions Prescriptions: No Action metoprolol tartrate 25 mg tablet 25 mg PO BID Qty: 60 0RF Referrals / Follow Up: Marlen Jeffries MD [Primary Care Provider] - Disposition Disposition (needs filled in before D/C Order can be placed): Home, Self Care
== END 2023-03-19 11:00 | disposition home or self-care (01) | DRG 806 ==
LOC: WPOUT 05:03 → WP 05:03
PROVIDERS: Advanced Practice Midwife; Admitting Provider Obstetrics & Gynecology; PCP Internal Medicine; Visit Provider Obstetrics & Gynecology
DX: O99.824 Streptococcus B carrier state complicating childbirth (principal); Z37.0 Single live birth; I47.10 Supraventricular tachycardia, unspecified; O99.214 Obesity complicating childbirth; O70.0 First degree perineal laceration during delivery; O77.0 Labor and delivery complicated by meconium in amniotic fluid; Z3A.39 39 weeks gestation of pregnancy; Z88.0 Allergy status to penicillin; O99.42 Diseases of the circulatory system complicating childbirth
CPT/HCPCS: 59025; 59050; 85025; 86780; 86850; 86900; 86901; 87426; 93005; 99221; J7120; A4216; G0378

== ENCOUNTER → 2023-06-28 | Outpatient (CLI) | payer OTHER, SELFPAY | END | disposition home or self-care (01) | LOC: LABSPEC 11:29 | PROVIDERS: PCP Internal Medicine; Referring Provider Nurse Practitioner Women's Health; Visit Provider Nurse Practitioner Women's Health | DX: R10.2 Pelvic and perineal pain (principal) | CPT/HCPCS: 87070; 87205 ==

== ENCOUNTER → 2024-05-11 | Outpatient (CLI) | payer OTHER, SELFPAY ==
[2024-05-19 13:12] LABS: HPV Reflexed? NOT INDICATED
== END | disposition home or self-care (01) ==
LOC: LABSPEC 13:47
PROVIDERS: PCP Internal Medicine; Referring Provider Obstetrics & Gynecology; Visit Provider Obstetrics & Gynecology
DX: Z12.4 Encounter for screening for malignant neoplasm of cervix (principal)
CPT/HCPCS: 88175; G0145

== ENCOUNTER → 2024-06-07 | Outpatient (CLI) | payer OTHER, SELFPAY ==
[2024-06-07 12:29] LABS: ALB/GLOB Ratio 0.9 RATIO (0.9-2.4); AST(SGOT) 12 U/L (15-37); Alanine Aminotransfer ALT/SGPT 20 U/L (13-56); Albumin, Serum 3.7 g/dL (3.2-5.0); Alkaline Phosphatase 73 U/L (45-117); Anion Gap 3 (5-15); BUN 12 mg/dL (7-18); BUN/Creat Ratio 15.5 RATIO (10-20); Calcium,Total 9.1 mg/dL (8.5-10.1); Chloride 107 mmol/L (98-107); Cholesterol 207 mg/dL (200); Creatinine, Serum 0.78 mg/dL (0.55-1.02); EST Glomerular Filtration Rate 94 mL/min (>60); Est Glom Filt Rate - Afr Amer 113 mL/min (>60); Glucose 100 mg/dL (74-106); High Density Lipoprotein 52 mg/dL; Potassium 3.9 mmol/L (3.5-5.1); Protein, Total 7.7 g/dL (6.4-8.2); Sodium Level 139 mmol/L (136-145); T4 Free Direct 0.85 ng/dL (0.76-1.46); Triglycerides 141 mg/dL; Very Low Density Lipoprotein 28 mg/dL (5-40)
[2024-06-07 13:09] LABS: Absolute Lymphocyte Count 2.24 X10^3/uL (0.83-4.51); Absolute Neutrophil Count 3.9 X10^3/uL (2.0-7.7); Basophil# 0.09 X10^3/uL; Basophil% 1.3 % (0-1); Eosinophil# 0.21 X10^3/uL; Hematocrit 41.7 % (37-47); Lymphocyte # 2.24 X10^3/ul (0.83-4.51); Lymphocyte % 31.5 % (19-41); Mean Corp Hgb Conc 33.6 g/dL (32-36); Mean Corpuscular Hgb 27.5 pg (27.0-32.0); Mean Corpuscular Volume 81.8 fL (81-99); Mean Platelet Vol. 9.8 fl (6.2-12.0); Monocyte# 0.62 X10^3/uL; Monocyte% 8.7 % (0-10); NRBC Flagged by Analyzer 0 % (0-5); Neutrophil # 3.92 X10^3/uL (2.7-7.7); Neutrophil % 55.1 % (47-70); Platelet Count 293 K/mm3 (150-450); RBC Distribution Width CV 13.7 % (11.6-14.6); White Blood Count 7.1 K/mm3 (4.4-11.0)
== END | disposition home or self-care (01) ==
LOC: BIMLAB 10:08
PROVIDERS: PCP Internal Medicine; Referring Provider Internal Medicine; Visit Provider Internal Medicine
DX: Z13.29 Encounter for screening for other suspected endocrine disorder (principal); Z13.6 Encounter for screening for cardiovascular disorders; G43.009 Migraine without aura, not intractable, without status migrainosus
CPT/HCPCS: 36415; 80053; 80061; 84439; 84443; 85025